=== PATIENT | male | born 1950 | race Caucasian/White ===

== ENCOUNTER 2018-09-09 00:41 | Outpatient (CLI) | payer SELFPAY ==
--- NOTE | 2018-09-09 09:24 | DI.RAD_ITS ---
SYMPTOM/DIAGNOSIS: DYSPHAGIA R13.10, CHRONIC COUGH R05 BARIUM SWALLOW: Routine examination was performed. No priors. PA and lateral view of the chest were obtained. Heart size and pulmonary vasculature are within normal limits. The lungs are clear and well expanded. No effusions or pneumothoraces are identified. IMPRESSION: No evidence of an acute pulmonary process. Fluoroscopy Time: 1:03 Barium swallow was performed according to protocol. There is a normal swallowing mechanism. No gastroesophageal reflux was identified during the examination. No aspiration occurred during the examination. No intrinsic or extrinsic masses, ulcers of stenoses are seen. Note is made of a small hiatal hernia. IMPRESSION: 1. No evidence of aspiration or gastroesophageal reflux during the examination. 2. Small hiatal hernia.
== END 2018-09-09 01:01 ==
PROVIDERS: PCP Internal Medicine; Visit Provider Internal Medicine
DX: R13.10 Dysphagia, unspecified (principal); R05 Cough; K44.9 Diaphragmatic hernia without obstruction or gangrene
CPT/HCPCS: 74220; J3490

== ENCOUNTER 2018-11-07 06:39 | Day surgery (SDC) | payer MEDICARE, SELFPAY ==
[2018-11-07 07:06] VITALS: BP 150/97; PULSE 72; RESP 18; TEMP 35.9; O2SAT 98
[2018-11-07] MEDS: Lactated Ringers 1,000 ML 30 ML IV (07:49)
--- NOTE | 2018-11-07 07:54 | W.COLOREPORT ---
Date of service: 11/07/18 Time of Service: 08: Colonoscopy Report Date of procedure: 11/07/18 Pre-op diagnosis general: Colon Cancer screening Post-op diagnosis procedure note: other (Ascending Colon Polyps, large sigmoid polyp, copeland-diverticulosis) Procedure: Colonoscopy with polypectomy with cold forceps and hot snare Surgeon: Lilly Baeza Anesthesia proc note operative: MAC (Melissa Bojorquez, CASE SPECIALIST/ ASA 2) Estimated blood loss (mL): 3 Pathology: other (Ascending Colon polyps x2, sigmoid polyp x 1) Complications: None Disposition: same day Indications: Mr. Car is a 68 year old male who had Colonoscopy in 2007 which was normal. He was seen in the office for another colonoscopy. Risks, benefits and complications have been reviewed. Complications include but are not limited to bleeding, pain, perforation, missed small lesion/polyp, sore throat, aspiration and adverse reaction to the medications. Questions were entertained and answered to their satisfaction and they wished to proceed. No guarantees were given or implied. Prep: Miralax/Dulcolax Procedure Start Time: : Procedure End Time: : Findings: 1. Ascending Colon polyp x2 2. Sigmoid colon polyp- large pedunculated polyp suspicious 3. Severe Copeland-diverticulosis Procedure Description: After informed consent was obtained the patient was taken to the procedure room and placed in a left decubitous position. Monitors were applied and a time out was done. The patients name, date of , procedure, allergies to medications and metal in their body was reviewed. The patient was then sedated. Once sedated and comfortable a rectal exam was done. External exam was normal. Internal exam revealed a normal sphincter tone and no palpable masses. The prostate was smooth. The scope was then introduced and retro-flexed. No internal hemorrhoids were identified. The scope was then advanced to the cecum without difficulty. The TI and appendiceal orifice were identified. The prep was good. The scope was then slowly retracted over 24 minutes back into the rectum. Polyps were removed in the ascending colon with cold forceps. One large pedunculated polyp was removed with a hot snare at 20 cm. The area was tattooed. There was also copeland-diverticulosis noted throughout the colon. The diverticulosis was worse on the left side then the right. The scope was removed and the patient was woken up and taken back to Same day surgery in stable condition. The patient tolerated the procedure well and there were no immediate complications. Follow up: Follow up depending on final pathology unless they develop changes in bowel habits or other new gastrointestinal complaints.
--- NOTE | 2018-11-07 07:58 | COLE_ITS ---
Date of service: 11/07/18 Time of Service: 08: Colonoscopy Report Date of procedure: 11/07/18 Pre-op diagnosis general: Colon Cancer screening Post-op diagnosis procedure note: other (Ascending Colon Polyps, large sigmoid polyp, copeland-diverticulosis) Procedure: Colonoscopy with polypectomy with cold forceps and hot snare Surgeon: Lilly Baeza Anesthesia proc note operative: MAC (Melissa Bojorquez, CAR CHECKER/ ASA 2) Estimated blood loss (mL): 3 Pathology: other (Ascending Colon polyps x2, sigmoid polyp x 1) Complications: None Disposition: same day Indications: Mr. Car is a 68 year old male who had Colonoscopy in 2007 which was normal. He was seen in the office for another colonoscopy. Risks, benefits and complications have been reviewed. Complications include but are not limited to bleeding, pain, perforation, missed small lesion/polyp, sore throat, aspiration and adverse reaction to the medications. Questions were entertained and answered to their satisfaction and they wished to proceed. No guarantees were given or implied. Prep: Miralax/Dulcolax Procedure Start Time: : Procedure End Time: : Findings: 1. Ascending Colon polyp x2 2. Sigmoid colon polyp- large pedunculated polyp suspicious 3. Severe Copeland-diverticulosis Procedure Description: After informed consent was obtained the patient was taken to the procedure room and placed in a left decubitous position. Monitors were applied and a time out was done. The patients name, date of , procedure, allergies to medications and metal in their body was reviewed. The patient was then sedated. Once sedated and comfortable a rectal exam was done. External exam was normal. Internal exam revealed a normal sphincter tone and no palpable masses. The prostate was smooth. The scope was then introduced and retro-flexed. No internal hemorrhoids were identified. The scope was then advanced to the cecum without difficulty. The TI and appendiceal orifice were identified. The prep was good. The scope was then slowly retracted over 24 minutes back into the rectum. Polyps were removed in the ascending colon with cold forceps. One large pedunculated polyp was removed with a hot snare at 20 cm. The area was tattooed. There was also copeland- diverticulosis noted throughout the colon. The diverticulosis was worse on the left side then the right. The scope was removed and the patient was woken up and taken back to Same day surgery in stable condition. The patient tolerated the procedure well and there were no immediate complications. Follow up: Follow up depending on final pathology unless they develop changes in bowel habits or other new gastrointestinal complaints.
--- NOTE | 2018-11-07 07:59 | W.PM.DSUDISC ---
Discharge Plan Disposition Patient Disposition: HOME Condition: Good Discharge Details Reason For Visit: Colonoscopy Attending Provider: Lilly Baeza Primary Care Provider: Faraz Kelley Home Meds and New Rx's Prescriptions: Continued ibuprofen 200 MG capsule 200 mg PO DAILY RF: 0 lovastatin 40 MG tablet 40 mg PO DAILY RF: 0 paroxetine HCl 20 MG tablet 1 tab PO DAILY RF: 0 Discontinued bisacodyl [Dulcolax (bisacodyl)] 5 mg tablet,delayed release (DR/EC) 5 mg PO ONCE Qty: 4 RF: 0 polyethylene glycol 3350 17 gram/dose powder 255 g PO ONCE Qty: 255 RF: 0 Discharge Instructions Instructions: Colonoscopy (DC), Colorectal Polyps (DC), Diverticulosis (DC) Additional Instructions: Findings: several colon polyps. One was large and my have cancer Diverticulosis Follow up:depends on final pathology Please call if you develop: fevers >101.5 Nausea or Vomiting Abdominal pain that is not transient DAY SURGERY UNIT POST COLONOSCOPY INSTRUCTIONS 1. Because there will be medication in your system for the next 24 hours, you may feel a little sleepy. Your coordination will be affected. Therefore: a. Do not drive or operate dangerous equipment for 24 hours. b. Do not drink alcohol beverages for 24 hours (not even beer). c. Plan to go home and rest for the day. 2. Generally there are no restrictions on your activity after a day or so has gone by, but you may feel a bit fatigued for a few days. 3 After you arrive home you may have a light meal and return to a normal diet as you can tolerate it without feeling sick to your stomach. 4. After surgery, you may feel pain or discomfort. This should be only transient, but if it persists please contact your doctor. 5. If there are any questions regarding the findings of your procedure, please feel free to contact your doctor. 6. If you are unable to contact your doctor with a problem, contact the hospital at [phone]. 7. Continue all your regular medications unless directed otherwise. I understand the above instructions and have no questions. Signature of Patient or Responsible Adult Escort Date/Time Name of Responsible Adult Escort Signature of Nurse Date/Time Activity:: Activity as Tolerated Diet:: As Tolerated Discharge Orders Discharge Orders: Discharge Order (Routine); Ordered 11/07/18 Ordered By: Lilly Baeza DS: Diagnosis Discharge Diagnosis (1) Colorectal polyps: Status: Acute (2) S/P colonoscopy: Status: Acute
--- NOTE | 2018-11-07 08:36 | BOWEL_PTH ---
PATIENT: Gibson Car LOC: [facility] U#:[id number] AGE/SX: 68/M ROOM: RE11/07/[address]: Lilly Baeza MD : [id number] BED: DIS: 11/07/2018 SPEC #: [id number] RECD: 11/07/18 12:37 STATUS: MARCOS RERay #: [id number] MICHELLE: 11/07/18 08:[address]: Lilly Baeza DEPT: Surgical Specimen RECD BY: Bren Villegas ENTERED: 11/07/18 12:38 SP TYPE: Bowel OTHR DR: Faraz Kelley Tissues: 1 - BIOPSY BOWEL 2 - BIOPSY BOWEL Procedures: GROSS AND MICRO LEVEL 4 Comments: [id number]
[2018-11-07] MEDS: Endoscopic Tattoo 5 ML SYR IJ (08:50)
[2018-11-07 10:07] VITALS: BP 133/89; PULSE 58; RESP 18; TEMP 35.8; O2SAT 100
== END 2018-11-07 10:00 | disposition home or self-care (01) ==
PROVIDERS: PCP Internal Medicine; Visit Provider Surgery
PROC: 0DJD8ZZ Inspection of Lower Intestinal Tract, Via Natural or Artificial Opening Endoscopic (ICD-10-PCS; CPT 45378; principal; 2018-11-07 08:15)
DX: Z12.11 Encounter for screening for malignant neoplasm of colon (principal); D12.2 Benign neoplasm of ascending colon; D12.5 Benign neoplasm of sigmoid colon
CPT/HCPCS: 45385; 45380; 88305

== ENCOUNTER 2018-11-13 12:20 | Emergency (ER) | payer MEDICARE, SELFPAY ==
[2018-11-13 12:26] VITALS: BP 149/91; PULSE 73; RESP 16; TEMP 36.5; O2SAT 98
--- NOTE | 2018-11-13 12:34 | DI.RAD_ITS ---
SYMPTOMS/DIAGNOSIS: SAW INJURY OF DISTAL 2-4 FINGERS, ? FX LEFT HAND: Three views. There appears to be cortical disruption of the ulnar aspect of the terminal tuft of the left ringer finger. Adjacent to the terminal tuft of the left middle finger, there are a few tiny densities present medially. These may represent foreign bodies vs small avulsed fracture fragments. Adjacent to the medial aspect of the terminal tuft of the left index finger there are also soft tissue densities present. These may represent small avulsed fracture fragments vs loose bodies. Soft tissue defects are seen in the medial aspects of the tips of the left index, middle and ring fingers consistent with soft tissue lacerations. No other findings to suggest a fracture or dislocation is seen. Mild osteoarthritis is seen of the left hand. IMPRESSION: 1. Lacerations involving the tips of the index, middle and ring fingers on the left hand. Tiny densities seen in the soft tissues. These may represent loose bodies or tiny fragment fragments. 2. Cortical disruption of the medial aspect of the terminal tuft of the left ring finger suspicious for a fracture.
--- NOTE | 2018-11-13 12:35 | W.ED.GENAD ---
Discharge Plan Disposition Patient Disposition: HOME Condition: Stable Discharge Details Chief Complaint: Laceration Clinical Impression: Laceration of hand, left Primary Care Provider: Faraz Kelley ED Provider: Adarsh Mckoy Home Meds and New Rx's Prescriptions: No Action ibuprofen 200 MG capsule 200 mg PO DAILY RF: 0 lovastatin 40 MG tablet 40 mg PO DAILY RF: 0 paroxetine HCl 20 MG tablet 1 tab PO DAILY RF: 0 Discharge Instructions Instructions: Laceration (ED) Additional Instructions: return in 10 days to have the sutures removed if redness spreads down the fingers or you have yellow/white discharge from the wound return to the emergency department Medical Decision Making PT was using a saw earlier and his left hand slipped and caused lacerations to the 2-4 distal digits. Did not fall or have loc. He has intact sensation and full rom of the fingers. Will xray to eval for underlying fx no fx on my read of the xray. I closed his wounds and advised he return to have the sutures removed in 10 days and return if evidence of infection\ per Dr. casanova has small cortical disruption of the ring finger distally and possible of the distal mid finger, none that are displaced. Do not feel orthopedics referral for these indicated, advised f/u with pcp Differential Diagnosis laceration, fx Imaging Data Radiologic Study: Attestation: I personally reviewed and interpreted this imaging study as follows: Imaging: X-Ray Radiologist's impression: IMPRESSION: 1. Lacerations involving the tips of the index, middle and ring fingers on the left hand. Tiny densities seen in the soft tissues. These may represent loose bodies or tiny fragment fragments. 2. Cortical disruption of the medial aspect of the terminal tuft of the left ring finger suspicious for a fracture. HPI General Mode of arrival: ambulatory. Date/Time Provider Initiated Documentation: 11/13/18 12:22. Limitations to Documentation: no limitations. Information obtained by: patient. History of Present Illness 68 year old M presents to the emergency department with the chief complaint of left hand injury, described as moderate, with intensity rated at 5. Quality is described as aching, and is localized to the left and upper extremity. Patient reports no radiation. and it has been constant. No relieving factors improve symptom(s), No exacerbating factors reported . Patient notes no other symptoms.. Patient did receive the following treatments prior to arrival, none Related Data Home Medications Medication Instructions Recorded Confirmed ibuprofen 200 mg PO DAILY 10/01/17 01/17/19 lovastatin 40 mg PO DAILY 07/28/17 11/13/18 paroxetine HCl 1 tab PO DAILY 07/28/17 11/13/18 Allergies Allergy/AdvReac Type Severity Reaction Status Date / Time No Known Allergies Allergy Verified 11/13/18 12:30 General Stated Complaint: Laceration SHADI: 4 Review of Systems Review of Systems All systems reviewed & are unremarkable except as noted in HPI and below Constitutional Denies chills, Denies fever(s) and Denies weakness ENT Denies change in voice Cardiovascular Denies chest pain and Denies dyspnea Respiratory Denies dyspnea Gastrointestinal Denies abdominal pain, Denies nausea and Denies vomiting Musculoskeletal Denies joint swelling Integumentary/Breasts Denies rash Neurologic Denies weakness [facility] Medical History Colorectal polyps (Acute ~11/07/18) Diverticulosis (Chronic) Depression (Chronic) BPH loc w/o ur obs/LUTS (Chronic) Chronic cough (Chronic) Dysphagia (Chronic) Dysphonia (Chronic) Ankylosing spondylitis (Chronic) Fibromyalgia (Chronic) Hyperlipidemia (Chronic) Iritis (Chronic) Osteoarthritis of knees, bilateral (Chronic) Surgical History S/P colonoscopy (Acute ~11/07/18) H/O colonoscopy (Chronic 12/31/07) Social History Smoking/Tobacco Use Status: Former Tobacco Use Exam Const General: no acute distress Orientation: alert [facility] Head: normal to inspection Ears: external ears normal General nose exam: external nose normal Mouth: moist mucous membranes Eyes General: appearance normal, both eyes and all related structures Neck Neck: normal visual inspection Resp Effort & Inspection: normal respiratory effort and able to speak in complete sentences Cardio Rate: regular rate Skin General skin exam: no rashes or lesions noted Neuro General: alert and oriented x3 Extrem General: normal capillary refill Psych Mental Status: mental status grossly normal Course Vital Signs Temperature 36.5 C 11/13/18 12:26 Pulse 73 11/13/18 12:26 Respiratory Rate 16 11/13/18 12:26 Blood Pressure 149/91 H 11/13/18 12:26 Pulse Oximetry 98 11/13/18 12:26 Temperature 36.5 C 11/13/18 12:26 Temperature Source Skin 11/13/18 12:26 Pulse 73 11/13/18 12:26 Respiratory Rate 16 11/13/18 12:26 Respiratory Effort 11/13/18 12:26 Blood Pressure 149/91 H 11/13/18 12:26 Blood Pressure Position Sitting 11/13/18 12:26 Pulse Oximetry 98 11/13/18 12:26 Oxygen Delivery Method Room Air 11/13/18 12:26 Oxygen Flow Rate 0 11/13/18 12:26 Pain Level 3 11/13/18 12:26 Procedures Laceration Laceration 1: Site: upper extremity Side (If applicable): left Size (cm): 6 Description: linear Depth: simple, single layer Local Anesthetic: Lidocaine 1% Amount of anesthesia used (mL): 8 Pre-repair: wound explored and irrigated extensively Skin layer closed with: vicryl Size (cm): 5-0 Number of sutures: 8 Technique: simple, interrupted
[2018-11-13 13:50] VITALS: BP 149/91; PULSE 73; RESP 16; TEMP 36.5; O2SAT 98
== END 2018-11-13 13:52 | disposition home or self-care (01) ==
PROVIDERS: Emergency Provider Emergency Medicine; PCP Internal Medicine
DX: S61.211A Laceration without foreign body of left index finger without damage to nail, initial encounter (principal); S61.213A Laceration without foreign body of left middle finger without damage to nail, initial encounter; S61.215A Laceration without foreign body of left ring finger without damage to nail, initial encounter; W27.0XXA Contact with workbench tool, initial encounter
CPT/HCPCS: 12002; 90471; 99283; 73130; 99282

== ENCOUNTER 2018-11-23 14:33 | Emergency (ER) | payer MEDICARE, SELFPAY ==
[2018-11-23 14:40] VITALS: BP 170/100; PULSE 63; RESP 16; TEMP 36.6; O2SAT 96
--- NOTE | 2018-11-23 15:04 | ED.GENADUL_ITS ---
Discharge Plan Disposition Patient Disposition: HOME Condition: Fair Discharge Details Chief Complaint: SutureRem Clinical Impression: Encounter for removal of sutures Primary Care Provider: Faraz Kelley ED Provider: Catina Agudelo Home Meds and New Rx's Prescriptions: Continued amoxicillin-pot clavulanate [Augmentin] 875-125 mg tablet 1 tab PO BID Qty: 10 RF: 0 ibuprofen 200 MG capsule 200 mg PO DAILY RF: 0 lovastatin 40 MG tablet 40 mg PO DAILY RF: 0 paroxetine HCl 20 MG tablet 1 tab PO DAILY RF: 0 Discharge Instructions Instructions: Finger Laceration (ED) Additional Instructions: Keep wounds clean and dry. When you are at home and are able please allow these open to air. However, when I work her out please cover with Band-Aid to help prevent infection include the areas clean. I would like you to follow-up with your primary for wound check at the end of the week. Please keep Steri-Strips in place until it falls off on its own. If you develop increased pain, fever/chills, discharge, redness or other new/worsening symptoms please seek care urgently once again peer Referrals: Faraz Kelley MD [Primary Care Provider] - Discharge Data Discharge Date/Time-TO BE ENTERED AT DEPARTURE: 11/23/18 15:44 Medical Decision Making Patient presents today with c/c of suture removal. Sutures were placed in the left distal 2,3,4 digits 10 days ago after patient suffered lacerations from table saw. Wounds were closed with simple interupted stitches and covered with adhesive. #8 sutures were identified. Difficult to remove with adhesive covering. Attempted to leave adhesive in place but much of this came off when trying to remove stitches. This did lead to to reopening of the areas, particularly over the index finger that appears to have a flap laceration. Areas under were macerated. No signs of infection at this time. Cleansed the fingers. Nursing staff used steristrips to hold flap in place and reinforce the wounds. I am concerned that he continues to be at risk for infection. We discussed this in depth, he was given strict return precautions and I advised that he have a wound check with his PCP at the end of the week. Wounds were covered. I advised that he keep them covered when needed to prevent infection but did encouge keeping these to air while at home as the skin did appear macerated. All of his quesitons and concerns were addressed, he is in agreement with this plan. HPI General Mode of arrival: ambulatory . Date/Time Provider Initiated Documentation: 11/23/18 14:39 . Limitations to Documentation: no limitations . Information obtained by: patient and family . History of Present Illness 68 year old M presents to the emergency department with the chief complaint of suture removal, described as mild, and is localized to the left and upper extremity. Patient reports no radiation. Patient started experiencing this day(s) (10) Movement worsens symptoms . Patient notes denies fever/chills and rash. Related Data Home Medications Medication Instructions Recorded Confirmed ibuprofen 200 mg PO DAILY 07/28/17 11/13/18 lovastatin 40 mg PO DAILY 07/28/17 11/13/18 paroxetine HCl 1 tab PO DAILY 07/28/17 11/13/18 amoxicillin-pot clavulanate 1 tab PO BID #10 tab 11/13/18 [Augmentin] Previous Rx's Medication Instructions Recorded amoxicillin-pot clavulanate 1 tab PO BID #10 tab 11/13/18 [Augmentin] Allergies Allergy/AdvReac Type Severity Reaction Status Date / Time No Known Allergies Allergy Verified 11/13/18 12:30 General SHADI: 4 Review of Systems Constitutional Reports as per HPI, Denies chills, Denies fever(s) and Denies weakness Musculoskeletal Reports as per HPI and Denies tingling Integumentary/Breasts Reports as per HPI Neurologic Denies tingling and Denies weakness PFSH Medical History Colorectal polyps (Acute ~11/07/18) Diverticulosis (Chronic) Depression (Chronic) BPH loc w/o ur obs/LUTS (Chronic) Chronic cough (Chronic) Dysphagia (Chronic) Dysphonia (Chronic) Ankylosing spondylitis (Chronic) Fibromyalgia (Chronic) Hyperlipidemia (Chronic) Iritis (Chronic) Osteoarthritis of knees, bilateral (Chronic) Surgical History S/P colonoscopy (Acute ~11/07/18) H/O colonoscopy (Chronic 12/31/07) Social History Smoking/Tobacco Use Status: Former Tobacco Use Exam Const General: cooperative, healthy appearing, comfortable, no acute distress and well developed Nutritional Appearance: average body habitus and well nourished Orientation: alert and awake Resp Effort & Inspection: normal respiratory effort, able to speak in complete sentences and no respiratory distress Cardio Rate: regular rate Rhythm: regular rhythm Skin General skin exam: no ecchymosis, no erythema and no fluctuance Trauma: laceration (2,3,4 digits left hand, covered with adhesive and suture) Neuro General: alert and awake Cognition: normal cognition Speech: speech normal Gait: normal gait Motor: muscle tone normal throughout Extrem General: abnormal to inspection (lacerations as above) Psych Appearance: grossly normal and well kempt Mental Status: mental status grossly normal Speech and Movement: speech and movement normal
== END 2018-11-23 15:44 | disposition home or self-care (01) ==
PROVIDERS: Emergency Provider Physician Assistant; PCP Internal Medicine
DX: S61.211D Laceration without foreign body of left index finger without damage to nail, subsequent encounter (principal); S61.213D Laceration without foreign body of left middle finger without damage to nail, subsequent encounter; S61.215D Laceration without foreign body of left ring finger without damage to nail, subsequent encounter; W27.0XXD Contact with workbench tool, subsequent encounter; Z48.02 Encounter for removal of sutures

== ENCOUNTER 2018-11-27 17:53 | Outpatient (REF) | payer MEDICARE, SELFPAY | END 2018-11-27 18:13 | LOC: NCHCN 17:53 | PROVIDERS: PCP Internal Medicine; Visit Provider Internal Medicine | DX: L08.9 Local infection of the skin and subcutaneous tissue, unspecified (principal); S61.203A Unspecified open wound of left middle finger without damage to nail, initial encounter | CPT/HCPCS: 87077; 87070; 87186; 87205 ==

== ENCOUNTER → 2020-12-23 10:51 | Outpatient (BNVA) | payer MEDICARE, SELFPAY | PROVIDERS: PCP Internal Medicine; Referring Provider Internal Medicine; Visit Provider Physical Therapy Assistant | DX: R13.10 Dysphagia, unspecified (principal); Z86.010 Personal history of colon polyps | CPT/HCPCS: 99214 ==

== ENCOUNTER 2021-01-07 15:23 | Observation (INO) | payer MEDICARE, SELFPAY ==
[2021-01-07] VITALS (29 sets, daily range): BP systolic 133–191; BP diastolic 75–101; PULSE 57–72; RESP 9–19; TEMP 35.8–37.1; O2SAT 96–99
--- NOTE | 2021-01-07 15:25 | ED.GENADUL_ITS ---
Discharge Plan Disposition Patient Disposition: [facility] INPATIENT Condition: Stable Discharge Details Clinical Impression: TIA (transient ischemic attack) Admit Date/Time: 01/07/21 17:37 Admit Provider: Marcus Jackson Attending Provider: Marcus Jackson Primary Care Provider: Faraz Kelley ED Provider: Montse Lainez Medical Decision Making 70-year-old male with a history of hypertension, hyperlipidemia, ankylosing spondylitis, fibromyalgia presents to the ED with concern for TIA. He endorses a 15-minute episode of blurry vision and a 30-minute episode of difficulty remembering family names that are both now resolved. He admits now to only mild headache. Blood pressure initially hypertensive at 191/101, improved to the 150s/90s. No focal deficits on exam. He appears comfortable and nontoxic. EKG notes a rate of 68, sinus, no STEMI, nondiagnostic Suspect most likely TIA, also consider acute CVA, electrolyte abnormality, arrhythmia, dehydration, etc. Will place an IV, bolus IV fluids, screening labs, CTA head and neck, chest x-ray. Labs reviewed. Hemoglobin elevated at 17.7. May be dehydration. Patient is a non-smoker. Troponin negative. CTA head and neck negative for acute findings. Chest x-ray negative. Discussed with patient that I recommend admission for observation overnight for suspected TIA for continued monitoring. We may not have MRI or echo capability over the weekend but would recommend patient be continued to be evaluated on telemetry. We will give a dose of aspirin. Patient did admit to neck pain which she states is chronic which she states may be due to his arthritis, fibromyalgia or ankylosing spondylitis. He appears nontoxic and do not suspect meningitis. Will give a dose of IV Tylenol and p.o. Valium. Medical Records Medical records reviewed: Yes I reviewed the patient's medical records. Imaging Data Radiologic Study: Radiologist's impression: CT Angiography Head With Contrast Exam date and time: 01/07/2021 4:18 PM Age: 70 years old Clinical indication: Cognitive deficit and weakness; Attention and concentration deficit; Patient HX: Patient had episode of confusion, right eye blurriness through episode. ; Additional info: 5 minute delay of brain per [facility] protocol. As well as head wo. TECHNIQUE: Imaging protocol: Computed tomography angiography of the head with intravenous contrast. 3D rendering (Not supervised by radiologist): MIP and/or 3D reconstructed images were created by the technologist. Radiation optimization: All CT scans at this facility use at least one of these dose optimization techniques: automated exposure control; mA and/or kV adjustment per patient size (includes targeted exams where dose is matched to clinical indication); or iterative reconstruction. Contrast material: OMNIPAQUE 350; Contrast volume: 85 ml; Contrast route: INTRAVENOUS (IV); COMPARISON: No relevant prior studies available. FINDINGS: ANTERIOR CIRCULATION: Right internal carotid artery: Intracranial atherosclerosis at the right carotid siphon. No significant stenosis or occlusion. Right middle cerebral artery: No flow-limiting stenosis or occlusion. Right anterior cerebral artery: No flow-limiting stenosis or occlusion. Left internal carotid artery: Intracranial atherosclerosis at the left carotid siphon. No significant stenosis or occlusion. Left middle cerebral artery: No flow-limiting stenosis or occlusion. Left anterior cerebral artery: No flow-limiting stenosis or occlusion. 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 No occlusion. Left vertebral artery: Left dominant vertebral artery. No flow-limiting stenosis or occlusion. Basilar artery: No flow-limiting stenosis or occlusion. Right posterior cerebral artery: No flow-limiting stenosis or occlusion. Left posterior cerebral artery: No flow-limiting stenosis or occlusion. Brain: No acute abnormality. Cerebral ventricles: No ventriculomegaly. Bones/joints: No acute fracture. Soft tissues: Unremarkable. IMPRESSION: No occlusion or flow-limiting stenosis of the major visualized intracranial vasculature. Mild intracranial atherosclerosis. CT Head Without Contrast Exam date and time: 01/07/2021 4:18 PM Age: 70 years old Clinical indication: Cognitive deficit and weakness; Attention and concentration deficit; Patient HX: Patient had episode of confusion, right eye blurriness through episode. ; Additional info: 5 minute delay of brain per [facility] protocol. As well as head wo. TECHNIQUE: Imaging protocol: Computed tomography of the head without contrast. Other technique: STROKE PROTOCOL was implemented. COMPARISON: No relevant prior studies available. FINDINGS: Brain: No acute large territorial infarction or intracranial hemorrhage. Mild parenchymal volume loss and nonspecific white matter hypodensity, likely chronic microangiopathy. No mass effect or midline shift. Cerebral ventricles: No hydrocephalus. Bones/joints: No displaced calvarial fracture. Paranasal sinuses: Visualized sinuses are unremarkable. No fluid levels. Mastoid air cells: Visualized mastoid air cells are well aerated. Soft tissues: Unremarkable. IMPRESSION: No acute intracranial abnormality. CT Angiography Neck With Contrast Exam date and time: 01/07/2021 4:18 PM Age: 70 years old Clinical indication: Cognitive deficit and weakness; Attention and concentration deficit; Patient HX: Patient had episode of confusion, right eye blurriness through episode. ; Additional info: 5 minute delay of brain per [facility] protocol. As well as head wo. TECHNIQUE: Imaging protocol: Computed tomography angiography of the neck with intravenous contrast. 3D rendering (Not supervised by radiologist): MIP and/or 3D reconstructed images were created by the technologist. Radiation optimization: All CT scans at this facility use at least one of these dose optimization techniques: automated exposure control; mA and/or kV adjustment per patient size (includes targeted exams where dose is matched to clinical indication); or iterative reconstruction. Contrast material: OMNIPAQUE 350; Contrast route: INTRAVENOUS (IV); COMPARISON: No relevant prior studies available. FINDINGS: Right common carotid artery: Atherosclerotic disease of the right common carotid artery. No significant stenosis or occlusion. Atherosclerotic disease of the right common carotid artery. No significant stenosis or occlusion. Right internal carotid artery: Atherosclerotic disease, without significant proximal right internal carotid artery stenosis by NASCET criteria. Right external carotid artery: No occlusion or stenosis of the origin. 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 No occlusion. Left common carotid artery: No stenosis. No dissection or occlusion. Left internal carotid artery: Atherosclerotic disease, without significant proximal left internal carotid artery stenosis by NASCET criteria. Left external carotid artery: No occlusion or stenosis of the origin. Left vertebral artery: Left dominant vertebral artery. No flow-limiting stenosis or occlusion. Bones/joints: Multilevel degenerative changes of the cervical spine, worse at C6-C7 with posterior disc osteophyte causing moderate to severe spinal stenosis. Mild anterolisthesis at C5-C6. Straightening of cervical lordosis. No acute osseous abnormality. Soft tissues: No significant soft tissue swelling. Lungs: Biapical pleuroparenchymal scarring. IMPRESSION: 1. No flow-limiting stenosis or occlusion. 2. Mild atherosclerosis. 3. Degenerative changes of the cervical spine. XR Chest Exam date and time: 01/07/2021 4:30 PM Age: 70 years old Clinical indication: Pain; Other: Possible TIA TECHNIQUE: Imaging protocol: XR of the chest Views: 2 views. COMPARISON: No relevant prior studies available. FINDINGS: Lungs: No focal consolidation. Pleural spaces: Unremarkable. No pleural effusion. No pneumothorax. Heart/Mediastinum: Cardiomediastinal countour within normal limits. Bones/joints: No acute displaced fracture. IMPRESSION: No acute cardiopulmonary process. Lab Data Lab results reviewed: Yes I reviewed the patient's lab results. Labs: Laboratory Tests Range/Units 01/07/21 01/07/21 01/07/21 15:35 15:35 15:35 WBC (4.4-10.8) 10^3/uL 6.78 RBC (4.36-5.78) 10^6/uL 5.13 Hgb (13.5-17.5) g/dL 17.7 H Hct (40.0-50.0) % 50.0 MCV (80-95) fL 97.5 H MCH (27.0-33.0) pg 34.5 H MCHC (32.0-36.0) % 35.4 RDW (11.8-14.1) % 12.1 Plt Count (130-400) 10^3/uL 240 MPV (8.0-11.0) fL 9.4 Immature Gran % 0.1 Neutrophils % 60.6 Lymphocytes % 27.6 Monocytes % 8.6 Eosinophils % 2.7 Basophils % 0.4 Nucleated RBC % % 0 Absolute Neutrophils (1.2-6.7) 10^3/uL 4.11 Absolute Lymphocytes (1.2-3.4) 10^3/uL 1.87 Absolute Monocytes (0.1-0.8) 10^3/uL 0.58 Absolute Eosinophils (0.0-0.7) 10^3/uL 0.18 Absolute Basophils (0.0-0.2) 10^3/uL 0.03 PT (9.3-11.0) sec 10.0 INR (0.9-1.1) 1.0 APTT (21.0-27.5) sec 25.2 Sodium (136-145) mmol/L 140 Potassium (3.5-5.1) mmol/L 3.7 Chloride (98-107) mmol/L 103 Carbon Dioxide (21.0-32.0) mmol/L 28.4 Anion Gap (3-11) mmol/L 8.6 BUN (7-18) mg/dL 14 Creatinine (0.70-1.30) mg/dL 1.2 Estimated GFR/1.73 m2 (mL/min/1.73m2) 59.86 Glucose (74-106) mg/dL 93 Calcium (8.5-10.1) mg/dL 8.9 Magnesium (1.8-2.4) mg/dL 2.2 Total Bilirubin (0.2-1.0) mg/dL 0.5 AST (15-37) U/L 20 ALT (16-63) U/L 47 Alkaline Phosphatase (46-116) U/L 91 Troponin I (<0.06) ng/mL < 0.05 Total Protein (6.4-8.2) g/dL 7.8 Albumin (3.4-5.0) g/dL 4.0 TSH (0.36-3.74) uIU/mL Range/Units 01/07/21 15:39 WBC (4.4-10.8) 10^3/uL RBC (4.36-5.78) 10^6/uL Hgb (13.5-17.5) g/dL Hct (40.0-50.0) % MCV (80-95) fL MCH (27.0-33.0) pg MCHC (32.0-36.0) % RDW (11.8-14.1) % Plt Count (130-400) 10^3/uL MPV (8.0-11.0) fL Immature Gran % Neutrophils % Lymphocytes % Monocytes % Eosinophils % Basophils % Nucleated RBC % % Absolute Neutrophils (1.2-6.7) 10^3/uL Absolute Lymphocytes (1.2-3.4) 10^3/uL Absolute Monocytes (0.1-0.8) 10^3/uL Absolute Eosinophils (0.0-0.7) 10^3/uL Absolute Basophils (0.0-0.2) 10^3/uL PT (9.3-11.0) sec INR (0.9-1.1) APTT (21.0-27.5) sec Sodium (136-145) mmol/L Potassium (3.5-5.1) mmol/L Chloride (98-107) mmol/L Carbon Dioxide (21.0-32.0) mmol/L Anion Gap (3-11) mmol/L BUN (7-18) mg/dL Creatinine (0.70-1.30) mg/dL Estimated GFR/1.73 m2 (mL/min/1.73m2) Glucose (74-106) mg/dL Calcium (8.5-10.1) mg/dL Magnesium (1.8-2.4) mg/dL Total Bilirubin (0.2-1.0) mg/dL AST (15-37) U/L ALT (16-63) U/L Alkaline Phosphatase (46-116) U/L Troponin I (<0.06) ng/mL Total Protein (6.4-8.2) g/dL Albumin (3.4-5.0) g/dL TSH (0.36-3.74) uIU/mL 3.27 ECG Data Attestation: I personally reviewed and interpreted this ECG (s) as follows: Interpretation: Rate of 58, sinus, no acute ST elevation or depression. CO 206. QRS 106. QTc 451. HPI General Mode of arrival: ambulatory . Date/Time Provider Initiated Documentation: 01/07/21 15:24 . Limitations to Documentation: no limitations . Information obtained by: patient . HPI Narrative: Patient is a 70-year-old male with a history of fibromyalgia, ankylosing spondylitis, hyperlipidemia and depression presents for blurry vision and speech changes today. Patient states a few hours prior to arrival he had blurry vision in both eyes, worse on the right side that occurred while he was reading. He states this lasted probably 15 minutes and then resolved. He also states that he had difficulty recalling names of some of his family members that occurred several hours later and last approximately 30 minutes and then resolved. Patient has a mild headache 1/10 on the top of his head but otherwise denies any other symptoms at this time. He denies dizziness, chest pain, shortness of breath, nausea, vomiting, diarrhea, abdominal pain or urinary symptoms. He denies any recent illness, recent new medications, recent travel or recent known sick contacts. Related Data Home Medications Medication Instructions Recorded Confirmed ibuprofen 200 mg PO DAILY 07/28/17 12/23/20 lovastatin 40 mg PO DAILY 07/28/17 01/07/21 albuterol sulfate 90 mcg/actuation 2 puff INHALATION Q6H PRN 09/02/20 01/07/21 aerosol inhaler loratadine 10 mg tablet 10 mg PO DAILY 09/02/20 01/07/21 paroxetine HCl 20 mg tablet 20 mg PO DAILY 09/02/20 01/07/21 bisacodyl 5 mg tablet,delayed 5 mg PO ONCE #4 tab 12/26/20 01/07/21 release bisacodyl 5 mg tablet,delayed 5 mg PO ONCE #4 tab 12/26/20 01/07/21 release polyethylene glycol 3350 17 238 g PO ONCE #238 g 12/26/20 01/07/21 gram/dose oral powder polyethylene glycol 3350 17 238 g PO ONCE #238 g 12/26/20 01/07/21 gram/dose oral powder Previous Rx's Medication Instructions Recorded bisacodyl 5 mg tablet,delayed 5 mg PO ONCE #4 tab 12/26/20 release bisacodyl 5 mg tablet,delayed 5 mg PO ONCE #4 tab 12/26/20 release polyethylene glycol 3350 17 238 g PO ONCE #238 g 12/26/20 gram/dose oral powder polyethylene glycol 3350 17 238 g PO ONCE #238 g 12/26/20 gram/dose oral powder Allergies Allergy/AdvReac Type Severity Reaction Status Date / Time No Known Allergies Allergy Verified 12/23/20 10:54 General SHADI: 4 Review of Systems All systems reviewed & are unremarkable except as noted in HPI and below Constitutional Constitutional: Reports as per HPI, Denies chills, Denies fever(s) and Reports headache(s) Eyes Eyes: Denies blurry vision and Reports loss of vision ENT Ears, Nose, Mouth, and Throat: Denies dizziness, Reports headache(s), Denies so re throat and Denies throat swelling Cardiovascular Cardiovascular: Denies chest pain and Denies dyspnea Respiratory Respiratory: Denies cough and Denies dyspnea Gastrointestinal Gastrointestinal: Denies abdominal pain, Denies diarrhea and Denies vomiting Genitourinary Genitourinary: Denies hematuria and Denies dysuria Musculoskeletal Musculoskeletal: Denies back pain and Denies numbness Integumentary/Breasts Skin/Breast: Denies lesions and Denies rash Neurologic Neurologic: Reports abnormal speech, Denies dizziness, Reports headache(s), Denies localized weakness, Reports loss of vision and Denies numbness Allergic/Immunologic Allergic/Immunologic: Denies throat swelling [facility] Medical History (Updated 03/13/21 @ 17:36 by Marcus Jackson) Adenomatous colon polyp Ankylosing spondylitis BPH loc w/o ur obs/LUTS Chronic cough Colorectal polyps (~11/07/18) Depression Diverticulosis Dysphagia Dysphonia Fibromyalgia Hyperlipidemia Iritis Osteoarthritis of knees, bilateral Postural tremor Tubulovillous adenoma (~2019) Surgical History H/O colonoscopy (12/31/07) screening colo with Dr Farr showed diverticulosis, sample showed inflammation only. S/P colonoscopy (~11/07/18) Social History Smoking/Tobacco Use Status: Former Tobacco Use Smoking risk assessment performed?: Yes Drug use: Never Do you feel safe at home: Yes Do you feel safe in your relationship?: Yes Exam Const General: cooperative, healthy appearing and no acute distress HENMT Head: normal to inspection Face and sinus: normal facial exam Eyes General: appearance normal, both eyes and all related structures Pupils: PERRL EOM: EOM intact bilaterally Neck Neck: normal visual inspection and No submandibular swelling Lymphatic: no lymphadenopathy noted Chest Chest: normal inspection of the chest and no tenderness Resp Effort & Inspection: normal respiratory effort and able to speak in complete sentences Auscultation: clear to auscultation bilaterally Cardio Rate: regular rate Rhythm: regular rhythm GI Inspection: normal to inspection Palpation: soft, not firm, not rigid and nontender Auscultation: normal bowel sounds Skin General skin exam: no rashes or lesions noted Neuro General: patient alert, patient awake, patient oriented x3, gait normal, moves all extremities and no meningeal signs Cranial Nerves: CN's II-XI intact bilaterally Cognition: normal cognition Speech: speech normal Motor: muscle tone normal throughout and strength 5/5 throughout Sensory Exam: no sensory deficits noted Extrem General: normal to inspection, full ROM, capillary refill normal, no calf tenderness bilaterally and no edema Psych Appearance: grossly normal Mental Status: mental status grossly normal Speech and Movement: speech and movement normal Affect: normal affect
--- NOTE | 2021-01-07 15:30 | RT.EKG_ITS ---
APPROVED REPORT Exam: Resting ECG Patient Location: E HR:68 bpm ECG Measurements Heart Rate 68 AXIS GA 206 P 38 QRSd 106 QRS -9 QT 422 T 32 QTc 451 Conclusion Sinus rhythm...normal P axis, V-rate 60- 99 I have reviewed and interpreted ECG and agree with software generated interpretation.
--- NOTE | 2021-01-07 16:00 | DI.CT_ITS ---
EXAM: CT BRAIN NECK CTA CLINICAL HISTORY: blurry vision, difficulty with speech, r/o cva. TECHNIQUE: Imaging Protocol: Axial CT angiography was performed with multi-slice acquisition and mu lti-planar and/or 3D reconstructions. CONTRAST MATERIAL: Intravenous: Omnipaque 350 Contrast volume:structured data in ml COMPARISON: No exams were available for comparison FINDINGS: CT angiography of the cervical cranial region was performed according to the usual protocol with intr avenous infusion of 100 cc of Omnipaque 350.. Initial noncontrast scanning of the head is unremarkable. Visualized lung apices are clear. Visualized portions of thoracic aorta and pulmonary arterial circul ation are unremarkable. There is no evidence of a cervical mass or adenopathy. The tracheal laryngeal structures appear intact. The common, internal, and external carotid arteries are within normal limits in the cervical region e xcept for slight atheromatous changes with no evidence of aneurysm, significant stenosis, or dissecti on. The vertebral arteries are unremarkable in appearance in the cervical region with no evidence of aneu rysm, stenosis, or dissection. Intracranial portions of the internal carotid arteries appear normal with no evidence of aneurysm, st enosis, or dissection. Intracranial vertebral arteries and basilar artery appear normal with no evidence of aneurysm, stenos is or dissection. No aneurysm identified in the region of the [id number]. The anterior, middle, and posterior cer ebral arteries and major branches appear intact with no evidence of aneurysm, stenosis, or dissection . No enhancing brain lesion identified. IMPRESSION: Negative CT angiography of the cervical cranial region. RADIATION DOSE DELIVERED: 1,926.19mGy.cmTotal DLP 1,926.19mGy.cm Total DLP DATA REPOSITORY: All CT scans at this facility are submitted to the National Radiology Data Registry (NRDR) Dose Index Registry (DIR) with the [employer] ([employer]). RADIATION OPTIMIZATION: All CT scans at this facility use at least one of these dose optimization te chniques: automated exposure control; mA and/or kV adjustment per patient size (includes targeted exa ms where dose is matched to clinical indication); or iterative reconstruction.
--- NOTE | 2021-01-07 16:00 | DI.RAD_ITS ---
EXAM: XR CHEST 2V PA LATERAL CLINICAL HISTORY: possible tia, r/o acute fx TECHNIQUE: 2D digital imaging was performed. COMPARISON: CR,RF RF barium swallow from 09/09/2018 FINDINGS: The heart is not enlarged. The lungs are clear and well expanded. No pleural effusion seen. Mediastin al contours appear intact. The bones appear intact as visualized. IMPRESSION: Normal chest. RADIATION DOSE DELIVERED: Total DLP
[2021-01-07] MEDS: Normal Saline Flush 10 ML SYR IVP ×2 (16:19→20:28)
[2021-01-07] MEDS: Omnipaque 350 MG/ML 100 ML BTL IJ (16:20)
[2021-01-07] MEDS: Normal Saline - Diluent 50 ML VIAL IV (16:21)
--- NOTE | 2021-01-07 16:51 | DI.VRAD_ITS ---
PROCEDURE INFORMATION: Exam: CT Angiography Head With Contrast Exam date and time: 01/07/2021 4:18 PM Age: 70 years old Clinical indication: Cognitive deficit and weakness; Attention and concentration deficit; Patient HX: Patient had episode of confusion, right eye blurriness through episode. ; Additional info: 5 minute delay of brain per [facility] protocol. As well as head wo. TECHNIQUE: Imaging protocol: Computed tomography angiography of the head with intravenous contrast. 3D rendering (Not supervised by radiologist): MIP and/or 3D reconstructed images were created by the technologist. Radiation optimization: All CT scans at this facility use at least one of these dose optimization techniques: automated exposure control; mA and/or kV adjustment per patient size (includes targeted exams where dose is matched to clinical indication); or iterative reconstruction. Contrast material: OMNIPAQUE 350; Contrast volume: 85 ml; Contrast route: INTRAVENOUS (IV); COMPARISON: No relevant prior studies available. FINDINGS: ANTERIOR CIRCULATION: Right internal carotid artery: Intracranial atherosclerosis at the right carotid siphon. No significant stenosis or occlusion. Right middle cerebral artery: No flow-limiting stenosis or occlusion. Right anterior cerebral artery: No flow-limiting stenosis or occlusion. Left internal carotid artery: Intracranial atherosclerosis at the left carotid siphon. No significant stenosis or occlusion. Left middle cerebral artery: No flow-limiting stenosis or occlusion. Left anterior cerebral artery: No flow-limiting stenosis or occlusion. 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 No occlusion. Left vertebral artery: Left dominant vertebral artery. No flow-limiting stenosis or occlusion. Basilar artery: No flow-limiting stenosis or occlusion. Right posterior cerebral artery: No flow-limiting stenosis or occlusion. Left posterior cerebral artery: No flow-limiting stenosis or occlusion. Brain: No acute abnormality. Cerebral ventricles: No ventriculomegaly. Bones/joints: No acute fracture. Soft tissues: Unremarkable. IMPRESSION: No occlusion or flow-limiting stenosis of the major visualized intracranial vasculature. Mild intracranial atherosclerosis. PROCEDURE INFORMATION: Exam: CT Head Without Contrast Exam date and time: 01/07/2021 4:18 PM Age: 70 years old Clinical indication: Cognitive deficit and weakness; Attention and concentration deficit; Patient HX: Patient had episode of confusion, right eye blurriness through episode. ; Additional info: 5 minute delay of brain per [facility] protocol. As well as head wo. TECHNIQUE: Imaging protocol: Computed tomography of the head without contrast. Other technique: STROKE PROTOCOL was implemented. COMPARISON: No relevant prior studies available. FINDINGS: Brain: No acute large territorial infarction or intracranial hemorrhage. Mild parenchymal volume loss and nonspecific white matter hypodensity, likely chronic microangiopathy. No mass effect or midline shift. Cerebral ventricles: No hydrocephalus. Bones/joints: No displaced calvarial fracture. Paranasal sinuses: Visualized sinuses are unremarkable. No fluid levels. Mastoid air cells: Visualized mastoid air cells are well aerated. Soft tissues: Unremarkable. IMPRESSION: No acute intracranial abnormality. ASSESSMENT: ASPECTS ([place] Stroke Program Early CT Score) is 10. PROCEDURE INFORMATION: Exam: CT Angiography Neck With Contrast Exam date and time: 01/07/2021 4:18 PM Age: 70 years old Clinical indication: Cognitive deficit and weakness; Attention and concentration deficit; Patient HX: Patient had episode of confusion, right eye blurriness through episode. ; Additional info: 5 minute delay of brain per [facility] protocol. As well as head wo. TECHNIQUE: Imaging protocol: Computed tomography angiography of the neck with intravenous contrast. 3D rendering (Not supervised by radiologist): MIP and/or 3D reconstructed images were created by the technologist. Radiation optimization: All CT scans at this facility use at least one of these dose optimization techniques: automated exposure control; mA and/or kV adjustment per patient size (includes targeted exams where dose is matched to clinical indication); or iterative reconstruction. Contrast material: OMNIPAQUE 350; Contrast route: INTRAVENOUS (IV); COMPARISON: No relevant prior studies available. FINDINGS: Right common carotid artery: Atherosclerotic disease of the right common carotid artery. No significant stenosis or occlusion. Atherosclerotic disease of the right common carotid artery. No significant stenosis or occlusion. Right internal carotid artery: Atherosclerotic disease, without significant proximal right internal carotid artery stenosis by NASCET criteria. Right external carotid artery: No occlusion or stenosis of the origin. 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 No occlusion. Left common carotid artery: No stenosis. No dissection or occlusion. Left internal carotid artery: Atherosclerotic disease, without significant proximal left internal carotid artery stenosis by NASCET criteria. Left external carotid artery: No occlusion or stenosis of the origin. Left vertebral artery: Left dominant vertebral artery. No flow-limiting stenosis or occlusion. Bones/joints: Multilevel degenerative changes of the cervical spine, worse at C6-C7 with posterior disc osteophyte causing moderate to severe spinal stenosis. Mild anterolisthesis at C5-C6. Straightening of cervical lordosis. No acute osseous abnormality. Soft tissues: No significant soft tissue swelling. Lungs: Biapical pleuroparenchymal scarring. IMPRESSION: 1. No flow-limiting stenosis or occlusion. 2. Mild atherosclerosis. 3. Degenerative changes of the cervical spine. REFERENCES: NASCET CRITERIA. The degree of internal carotid artery stenosis is based on NASCET criteria. Normal is no stenosis. Mild is less than 50% stenosis. Moderate is 50-69% stenosis. Severe is 70% to 99% stenosis. Total occlusion is no detectable patent lumen. Dictated and Authenticated by: Patti Jacob MD. Ordering:MYLA Willard MD
[2021-01-07 16:53] LABS: Abs Immature Grans 0.01 10^3/uL (0.0-0.06); Absolute Basophil Count 0.03 10^3/uL (0.0-0.2); Absolute Eosinophil Count 0.18 10^3/uL (0.0-0.7); Absolute Lymphocyte Count 1.87 10^3/uL (1.2-3.4); Absolute Monocyte Count 0.58 10^3/uL (0.1-0.8); Absolute Neutrophil Count 4.11 10^3/uL (1.2-6.7); Basophils % 0.4; Eosinophils % 2.7; HGB 17.7 g/dL (13.5-17.5); Immature Grans % 0.1; Lymphocytes % 27.6; MCH 34.5 pg (27.0-33.0); MCHC 35.4 % (32.0-36.0); MCV 97.5 fL (80-95); MPV 9.4 fL (8.0-11.0); Monocytes % 8.6; Neutrophils % 60.6; Nucleated RBC 0 %; Platelet Count 240 10^3/uL (130-400); RBC 5.13 10^6/uL (4.36-5.78); RDW 12.1 % (11.8-14.1); RDW-SD 43.7 fL; WBC 6.78 10^3/uL (4.4-10.8)
--- NOTE | 2021-01-07 16:57 | DI.VRAD_ITS ---
PROCEDURE INFORMATION: Exam: XR Chest Exam date and time: 01/07/2021 4:30 PM Age: 70 years old Clinical indication: Pain; Other: Possible TIA TECHNIQUE: Imaging protocol: XR of the chest Views: 2 views. COMPARISON: No relevant prior studies available. FINDINGS: Lungs: No focal consolidation. Pleural spaces: Unremarkable. No pleural effusion. No pneumothorax. Heart/Mediastinum: Cardiomediastinal countour within normal limits. Bones/joints: No acute displaced fracture. IMPRESSION: No acute cardiopulmonary process. Dictated and Authenticated by: Patti Jacob MD. Ordering:MYLA Willard MD
[2021-01-07 17:06] LABS: PTT Activated 25.2 sec (21.0-27.5)
[2021-01-07 17:09] LABS: ALT 47 U/L (16-63); AST 20 U/L (15-37); Alkaline Phosphatase 91 U/L (46-116); Anion Gap 8.6 mmol/L (3-11); BUN 14 mg/dL (7-18); Bilirubin, Total 0.5 mg/dL (0.2-1.0); CO2 28.4 mmol/L (21.0-32.0); CREATININE 1.2 mg/dL (0.70-1.30); Calcium 8.9 mg/dL (8.5-10.1); Chloride 103 mmol/L (98-107); Estimated GFR 59.86 (mL/min/1.73m2); Glucose 93 mg/dL (74-106); Magnesium 2.2 mg/dL (1.8-2.4); Potassium 3.7 mmol/L (3.5-5.1); Sodium 140 mmol/L (136-145); Total Protein 7.8 g/dL (6.4-8.2); Troponin I < 0.05 ng/mL (<0.06)
[2021-01-07] MEDS: Normal Saline 500 ML IV (17:25)
[2021-01-07] MEDS: ACETAMINOPHEN 1,000 MG/100 ML BTL 400 MG IVPB (17:27)
[2021-01-07] MEDS: Aspirin 325 MG TAB PO (17:30)
[2021-01-07] MEDS: diazePAM 5 MG TAB PO ×2 (17:30→20:47)
--- NOTE | 2021-01-07 17:31 | W.PM.HP.N ---
Date of service: 01/07/21 Time of Service: 17:31 Assessment and Plan Assessment and plan (1) TIA (transient ischemic attack): Start date: 01/07/21 Status: Acute Assessment and plan: This is a 70-year-old gentleman with transient neurological symptoms involving the right visual field and speech with inability to recall names of familiar faces on pictures. Both are completely resolved the patient has had no recurrent symptoms on loading dose of aspirin and continue baby aspirin. MRI follow-up can be done as an outpatient with patient having cardiac monitoring overnight with sinus bradycardia but no dysrhythmias. He does have significant risk factors for heart disease but CTA and CT of the head were negative. He was not previously on aspirin. Neurology follow-up will be appropriate. More aggressive treatment of cardiac risk factors would be appropriate and I did give the patient a large dose of statin which could be continued as an outpatient. He is already on a statin as an outpatient. He is a full code. (2) Ankylosing spondylitis of cervicothoracic region: Status: Chronic Assessment and plan: Increased pain recently with patient having fair mobility. He is having increased spasm and Valium was helpful with patient having been on cyclobenzaprine in the past which could be continued as an outpatient. Follow-up clinically with his PCP. (3) HTN (hypertension): Status: Chronic Assessment and plan: Patient was slightly hypertensive on admission which may indicate decreased blood flow to the brain with no evident stroke but symptoms of TIA. Consider treatment but for now permissive hypertension while evaluating in observation. Qualifiers: Hypertension type: essential hypertension Qualified Code(s): I10 - Essential (primary) hypertension History of Present Illness History of Present Illness Chief Complaint: Transient right visual field blurriness and name recall Narrative: This is a 70-year-old male patient who is a semiretired [employer] who reported to the ED with transient neurological symptoms which involved a 15-minute episode of right visual field blurriness which self resolved and then hours later inability to remember names of famous people and pictures of family members such as his niece though he recognized the faces. This lasted about 30 minutes and self resolved. He had a mild headache which was 1 out of 10 at the top of his head but no other neurological symptoms. At the time he reported to the ED it has been hours since the events. He denied any palpitations or chest discomfort. He has had no recent trauma. 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 He does have ankylosing spondylitis which is progressive with increased pain recently. He is very active without restrictions. The patient was not previously on aspirin was given a full dose aspirin in the ED which will be continued as a baby aspirin daily. He will be observed overnight because of his symptoms with cardiac monitoring and treatment of his ankylosing spondylitis and headache probably secondary to pain from this problem. Teleneurology in the ED had nothing more to offer but did recommend MRI for follow-up Review of Systems Narrative: 13 point review of systems otherwise unrevealing or stable. The patient is active and has controlled weight. He is not on antihypertensives and is on Paxil for treatment of mood disorder associated with his pain with ankylosing spondylitis. [facility] Medical History Adenomatous colon polyp Ankylosing spondylitis BPH loc w/o ur obs/LUTS Chronic cough Colorectal polyps (~11/07/18) Depression Diverticulosis Dysphagia Dysphonia Fibromyalgia Hyperlipidemia Iritis Osteoarthritis of knees, bilateral Postural tremor Tubulovillous adenoma (~2018) Surgical History H/O colonoscopy (12/31/07) screening colo with Dr Farr showed diverticulosis, sample showed inflammation only. S/P colonoscopy (~11/07/18) Social History Smoking/Tobacco Use Status: Former Tobacco Use Smoking risk assessment performed?: Yes Drug use: Never Do you feel safe at home: Yes Do you feel safe in your relationship?: Yes Meds Home Medications and Allergies Allergies Allergy/AdvReac Type Severity Reaction Status Date / Time No Known Allergies Allergy Verified 12/23/20 10:54 Home Medications Medication Instructions Recorded Confirmed Type ibuprofen 200 mg PO DAILY 07/28/17 12/23/20 History lovastatin 40 mg PO DAILY 07/28/17 01/07/21 History albuterol sulfate 90 mcg/actuation 2 puff INHALATION Q6H PRN 09/02/20 01/07/21 History aerosol inhaler loratadine 10 mg tablet 10 mg PO DAILY 09/02/20 01/07/21 History paroxetine HCl 20 mg tablet 20 mg PO DAILY 09/02/20 01/07/21 History bisacodyl 5 mg tablet,delayed 5 mg PO ONCE #4 tab 12/26/20 01/07/21 Rx release bisacodyl 5 mg tablet,delayed 5 mg PO ONCE #4 tab 12/26/20 01/07/21 Rx release polyethylene glycol 3350 17 238 g PO ONCE #238 g 12/26/20 01/07/21 Rx gram/dose oral powder polyethylene glycol 3350 17 238 g PO ONCE #238 g 12/26/20 01/07/21 Rx gram/dose oral powder Exam Narrative Exam Narrative: General: Patient appears younger than stated age, thin build and tall, in no acute distress. He is alert and oriented x3. HEENT: Normocephalic, eyes with pupils equal and reactive light symmetrically, extraocular movement tact and sclera anicteric. Oropharynx with moist mucosa and fair dentition. External ears and nose normal. Neck: Supple without JVD or auscultated carotid bruits. Back: Normal posture, no CVA tenderness. Lungs: Clear to auscultation and percussion. Normal inspiratory expiratory phase ratio with no expiratory wheeze. Heart: Bradycardic rate and regular rhythm with no murmurs gallops appreciated. Abdomen: Scaphoid contour, soft and nontender to palpation with no palpable hepatosplenomegaly. Genitalia/rectal: Exam deferred. Extremities: Without clubbing, cyanosis or edema with peripheral pulses intact. Osteoarthritic changes especially of the knees with genu varum. Skin: Normal color, warm and dry. Actinic changes over sun exposed areas. Neuro: Cranial nerves II through XII grossly intact, no focalizing motor deficits. Sensory grossly intact. No Babinski's. No tremor. Psych: Normal mood and affect, no abnormal thought processes. Remote and recent memory intact. Results Imaging Imaging Studies: Exam: CT Angiography Head With Contrast Exam date and time: 01/07/2021 4:18 PM Age: 70 years old Clinical indication: Cognitive deficit and weakness; Attention and concentration deficit; Patient HX: Patient had episode of confusion, right eye blurriness through episode. ; Additional info: 5 minute delay of brain per [facility] protocol. As well as head wo. TECHNIQUE: Imaging protocol: Computed tomography angiography of the head with intravenous contrast. 3D rendering (Not supervised by radiologist): MIP and/or 3D reconstructed images were created by the technologist. Radiation optimization: All CT scans at this facility use at least one of these dose optimization techniques: automated exposure control; mA and/or kV adjustment per patient size (includes targeted exams where dose is matched to clinical indication); or iterative reconstruction. Contrast material: OMNIPAQUE 350; Contrast volume: 85 ml; Contrast route: INTRAVENOUS (IV); COMPARISON: No relevant prior studies available. FINDINGS: ANTERIOR CIRCULATION: Right internal carotid artery: Intracranial atherosclerosis at the right carotid siphon. No significant stenosis or occlusion. Right middle cerebral artery: No flow-limiting stenosis or occlusion. Right anterior cerebral artery: No flow-limiting stenosis or occlusion. Left internal carotid artery: Intracranial atherosclerosis at the left carotid siphon. No significant stenosis or occlusion. Left middle cerebral artery: No flow-limiting stenosis or occlusion. Left anterior cerebral artery: No flow-limiting stenosis or occlusion. 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 No occlusion. Left vertebral artery: Left dominant vertebral artery. No flow-limiting stenosis or occlusion. Basilar artery: No flow-limiting stenosis or occlusion. Right posterior cerebral artery: No flow-limiting stenosis or occlusion. Left posterior cerebral artery: No flow-limiting stenosis or occlusion. Brain: No acute abnormality. Cerebral ventricles: No ventriculomegaly. Bones/joints: No acute fracture. Soft tissues: Unremarkable. IMPRESSION: No occlusion or flow-limiting stenosis of the major visualized intracranial vasculature. Mild intracranial atherosclerosis. PROCEDURE INFORMATION: Exam: CT Head Without Contrast Exam date and time: 01/07/2021 4:18 PM Age: 70 years old Clinical indication: Cognitive deficit and weakness; Attention and concentration deficit; Patient HX: Patient had episode of confusion, right eye blurriness through episode. ; Additional info: 5 minute delay of brain per [facility] protocol. As well as head wo. TECHNIQUE: Imaging protocol: Computed tomography of the head without contrast. Other technique: STROKE PROTOCOL was implemented. COMPARISON: No relevant prior studies available. FINDINGS: Brain: No acute large territorial infarction or intracranial hemorrhage. Mild parenchymal volume loss and nonspecific white matter hypodensity, likely chronic microangiopathy. No mass effect or midline shift. Cerebral ventricles: No hydrocephalus. Bones/joints: No displaced calvarial fracture. Paranasal sinuses: Visualized sinuses are unremarkable. No fluid levels. Mastoid air cells: Visualized mastoid air cells are well aerated. Soft tissues: Unremarkable. IMPRESSION: No acute intracranial abnormality. ASSESSMENT: ASPECTS ([place] Stroke Program Early CT Score) is 10. PROCEDURE INFORMATION: Exam: CT Angiography Neck With Contrast Exam date and time: 01/07/2021 4:18 PM Age: 70 years old Clinical indication: Cognitive deficit and weakness; Attention and concentration deficit; Patient HX: Patient had episode of confusion, right eye blurriness through episode. ; Additional info: 5 minute delay of brain per [facility] protocol. As well as head wo. TECHNIQUE: Imaging protocol: Computed tomography angiography of the neck with intravenous contrast. 3D rendering (Not supervised by radiologist): MIP and/or 3D reconstructed images were created by the technologist. Radiation optimization: All CT scans at this facility use at least one of these dose optimization techniques: automated exposure control; mA and/or kV adjustment per patient size (includes targeted exams where dose is matched to clinical indication); or iterative reconstruction. Contrast material: OMNIPAQUE 350; Contrast route: INTRAVENOUS (IV); COMPARISON: No relevant prior studies available. FINDINGS: Right common carotid artery: Atherosclerotic disease of the right common carotid artery. No significant stenosis or occlusion. Atherosclerotic disease of the right common carotid artery. No significant stenosis or occlusion. Right internal carotid artery: Atherosclerotic disease, without significant proximal right internal carotid artery stenosis by NASCET criteria. Right external carotid artery: No occlusion or stenosis of the origin. 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 No occlusion. Left common carotid artery: No stenosis. No dissection or occlusion. Left internal carotid artery: Atherosclerotic disease, without significant proximal left internal carotid artery stenosis by NASCET criteria. Left external carotid artery: No occlusion or stenosis of the origin. Left vertebral artery: Left dominant vertebral artery. No flow-limiting stenosis or occlusion. Bones/joints: Multilevel degenerative changes of the cervical spine, worse at C6-C7 with posterior disc osteophyte causing moderate to severe spinal stenosis. Mild anterolisthesis at C5-C6. Straightening of cervical lordosis. No acute osseous abnormality. Soft tissues: No significant soft tissue swelling. Lungs: Biapical pleuroparenchymal scarring. IMPRESSION: 1. No flow-limiting stenosis or occlusion. 2. Mild atherosclerosis. 3. Degenerative changes of the cervical spine. Labs Result diagrams: 01/08/21 07:00 01/08/21 07:00 Labs: Laboratory Results - last 24 hr 01/07/21 01/07/21 01/07/21 15:35 15:35 15:35 WBC 6.78 RBC 5.13 Hgb 17.7 H Hct 50.0 MCV 97.5 H MCH 34.5 H MCHC 35.4 RDW 12.1 Plt Count 240 MPV 9.4 Immature Gran % 0.1 Neutrophils % 60.6 Lymphocytes % 27.6 Monocytes % 8.6 Eosinophils % 2.7 Basophils % 0.4 Nucleated RBC % 0 Absolute Neutrophils 4.11 Absolute Lymphocytes 1.87 Absolute Monocytes 0.58 Absolute Eosinophils 0.18 Absolute Basophils 0.03 PT 10.0 INR 1.0 APTT 25.2 Sodium 140 Potassium 3.7 Chloride 103 Carbon Dioxide 28.4 Anion Gap 8.6 BUN 14 Creatinine 1.2 Estimated GFR/1.73 m2 59.86 Glucose 93 Calcium 8.9 Magnesium 2.2 Total Bilirubin 0.5 AST 20 ALT 47 Alkaline Phosphatase 91 Troponin I < 0.05 Total Protein 7.8 Albumin 4.0 Last Vital Signs Temp 36.5 C 01/07/21 15:31 Pulse 57 L 01/07/21 17:01 Resp 12 01/07/21 17:01 BP 142/86 H 01/07/21 17:01 Pulse Ox 98 01/07/21 17:01 COVID-19 Screening Have you, or household traveled for leisure in last 14 days?: No Had IN PERSON contact w/suspected or confirmed C-19 person: No
[2021-01-07 18:46] LABS: TSH (W/Ref FT4) 3.27 uIU/mL (0.36-3.74)
[2021-01-07 19:50] LABS: COVID-19 PCR Negative (Negative); Influenza A PCR Negative (Negative); Influenza B PCR Negative (Negative); RSV PCR Negative (Negative)
--- NOTE | 2021-01-07 20:04 | NUR.NOTE ---
unable to verify medications utilized hs list and pharmacy fill list Nursing Note:
[2021-01-07] MEDS: Normal Saline 1,000 ML 80 ML IV (20:05)
[2021-01-07] MEDS: Atorvastatin 40 MG TAB PO (20:25)
[2021-01-07] MEDS: Acetaminophen 325 MG TAB 650 MG PO (20:27)
[2021-01-08 03:21] VITALS: O2SAT 96
[2021-01-08 04:25] VITALS: BP 128/72; PULSE 54; RESP 16; TEMP 36.6; O2SAT 98
[2021-01-08 07:00] VITALS: PULSE 54
[2021-01-08 07:26] LABS: Abs Immature Grans 0.01 10^3/uL (0.0-0.06); Absolute Basophil Count 0.03 10^3/uL (0.0-0.2); Absolute Eosinophil Count 0.15 10^3/uL (0.0-0.7); Absolute Lymphocyte Count 1.54 10^3/uL (1.2-3.4); Absolute Monocyte Count 0.45 10^3/uL (0.1-0.8); Basophils % 0.6; Eosinophils % 3.1; HCT 43.3 % (40.0-50.0); HGB 15.2 g/dL (13.5-17.5); Immature Grans % 0.2; Lymphocytes % 31.6; MCH 34.2 pg (27.0-33.0); MCHC 35.1 % (32.0-36.0); MCV 97.3 fL (80-95); MPV 9.2 fL (8.0-11.0); Monocytes % 9.2; Neutrophils % 55.3; Nucleated RBC 0 %; Platelet Count 194 10^3/uL (130-400); RBC 4.45 10^6/uL (4.36-5.78); RDW 12.1 % (11.8-14.1); RDW-SD 43.5 fL; WBC 4.88 10^3/uL (4.4-10.8)
[2021-01-08 07:41] LABS: ALT 32 U/L (16-63); AST 15 U/L (15-37); Alkaline Phosphatase 68 U/L (46-116); BUN 11 mg/dL (7-18); Bilirubin, Total 0.5 mg/dL (0.2-1.0); CREATININE 1.1 mg/dL (0.70-1.30); Calcium 8.2 mg/dL (8.5-10.1); Chloride 107 mmol/L (98-107); Glucose 93 mg/dL (74-106); Sodium 143 mmol/L (136-145); Total Protein 6.1 g/dL (6.4-8.2)
[2021-01-08] MEDS: Aspirin 81 MG CHEW PO (08:00)
[2021-01-08] MEDS: PARoxetine 20 MG TAB PO (08:00)
[2021-01-08 08:01] VITALS: BP 139/83; PULSE 53; RESP 16; TEMP 36.6; O2SAT 98
[2021-01-08] MEDS: Cyclobenzaprine 10 MG TAB PO (08:44)
--- NOTE | 2021-01-08 10:07 | PT.INIE ---
Date of service: 01/08/21 Time of Service: 09:45 PT Notes Visit Reasons: TIA, CERVICAL PAIN Inpatient Physical Therapy Evaluation Date: 01/08/21 Referring Doctor: Marcus Jackson PT Orders: PT CONSULT: Limited Ability, Evaluate Precautions: Standard Patient Profile/Admitting Diagnosis: Orders received for this 70-year-old male. Patient apparently was some mild amnesia and visual focal change at home. This was sudden and recent with no history of chronicity. Patient is a nearly full recovery at this time. Orders have been received for physical therapy consult determine his functional ability compared to baseline. THe working diagnosis at this time is that patient may have had a mild TIA. Diagnostics have been unremarkable up to this point. PMHX: Medical History Adenomatous colon polyp Ankylosing spondylitis BPH loc w/o ur obs/LUTS Chronic cough Colorectal polyps (~11/07/18) Depression Diverticulosis Dysphagia Dysphonia Fibromyalgia Hyperlipidemia Iritis Osteoarthritis of knees, bilateral Postural tremor Tubulovillous adenoma (~2019) Surgical History H/O colonoscopy (12/31/07) screening colo with Dr Farr showed diverticulosis, sample showed inflammation only. S/P colonoscopy (~11/07/18) Social History/Home Situation: Patient lives in private home with his He is a [place] he still works part-time Equipment Owned/DME: Nothing Subjective: Patient states that he feels completely fine this morning Objective: Patient sitting in bed with head of bed to 45 degrees Mental Status: Well oriented alert to person place and time Pain: ROM: Right Upper Extremity: WNL Left Upper Extremity: WNL Right Lower Extremity: WNL Left Lower Extremity: WNL Strength: Right Upper Extremity: Globally 5/5 Left Upper Extremity: Globally 5/5 Right Lower Extremity: Globally 5/5 Left Lower Extremity: Globally 5/5 Bed Mobility/Transfers: Independent Supine-sit: Independent Sit-stand: Independent Stand-sit: Independent Gait: Ambulates freely in room, with front, backward, and lateral challenge Patient able to hold Modified [place] EO/EC Single leg stance up to 10 seconds, completed bilaterally Perturbation challenge in all directions is negative Balance: Static Sitting: NOrmal Dynamic Sitting: NOrmal Static Standing:NOrmal Dynamic Standing: Good Special Tests: Mobility Limitations Standardized Measure [facility] AM-PAC 6 clicks Basic Mobility Inpatient Short Form: Raw Score: 24 Standardized Score: 61.14 CMS Score: 0% Informed Consent/Education: Patient instructed in purpose of PT consult and plan of care. ASSESSMENT: Patient is a 70 year old male with history of good physical health Admitted with TIA and cervical pain Patient presents with the following impairment level findings: Patient appears to be at baseline Further Physical therapy treatment is not recommended at this time as patient is assumed at baseline. Impairments are contributing to the following functional limitations: AMPAC score 0% Patient is assessed as a Low complexity initial evaluation 91013 based on the following: History: see above Examination: see above Presentation: stable Decision Making: AMPAC of 0% Plan of Care/Treatment Plan: DISCHARGE RECOMMENDATIONS: To private home with without need for services. Follow up with PCP TREATMENT CODE/TIME: Low complexity initial evaluation [id number] 9:45 to 10:05 20 min of direct patient care Clint Soliman DPT
--- NOTE | 2021-01-08 12:40 | DSE_ITS ---
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 (3) HTN (hypertension): Status: Chronic Discharge Plan Disposition Patient Disposition: HOME Condition: Good Discharge Details Reason For Visit: TIA, CERVICAL PAIN Admit Date/Time: 01/07/21 17:37 Admit Provider: Marcus Jackson Attending Provider: Marcus Jackson Primary Care Provider: Faraz Kelley Hospital Course Hospital Course: This is a 70-year-old male patient who is a semiretired [place] who reported to the ED with transient neurological symptoms which involved a 15-minute episode of right visual field blurriness which self resolved and then hours later inability to remember names of famous people and pictures of family member s such as his niece though he recognized the faces. This lasted about 30 minutes and self resolved. He had a mild headache which was 1 out of 10 at the top of his head but no other neurological symptoms. At the time he reported to the ED it has been hours since the events. He denied any palpitations or chest discomfort. He has had no recent trauma. 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 He does have ankylosing spondylitis which is progressive with increased pain recently. He is very active without restrictions. The patient was not previously on aspirin was given a full dose aspirin in the ED which will be continued as a baby aspirin daily. He was observed overnight because of his symptoms with cardiac monitoring and treatment of his ankylosing spondylitis and headache probably secondary to pain from this problem. Teleneurology in the ED had nothing more to offer but did recommend MRI for follow-up. He had no arrhythmias noted on telemetry monitoring. No recurrence of any visual deficits or memory deficits. His statin was changed from lovastatin to atorvastatin 40mg daily to provide a higher potency. He will be scheduled for an outpt MRI brain. F/U with PCP in 1-2 weeks. Home Meds and New Rx's Prescriptions: New aspirin 81 mg Tablet,Chewable 81 mg PO DAILY Qty: 0 RF: 0 cyclobenzaprine 10 mg Tablet 10 mg PO TID PRN (Reason: muscle spasm) Qty: 20 RF: 0 atorvastatin [Lipitor] 40 mg Tablet 40 mg PO QPM Qty: 30 RF: 0 Continued paroxetine HCl 20 mg tablet 20 mg PO DAILY RF: 0 loratadine [Claritin] 10 mg tablet 10 mg PO DAILY RF: 0 albuterol sulfate [Ventolin HFA] 90 mcg/actuation HFA aerosol inhaler 2 puff inhalation Q6H PRNRF: 0 bisacodyl [Dulcolax (bisacodyl)] 5 mg tablet,delayed release (DR/EC) 5 mg PO ONCE Qty: 4 RF: 0 bisacodyl [Dulcolax (bisacodyl)] 5 mg tablet,delayed release (DR/EC) 5 mg PO ONCE Qty: 4 RF: 0 ibuprofen 200 MG capsule 200 mg PO DAILY RF: 0 Discontinued polyethylene glycol 3350 17 gram/dose powder 238 g PO ONCE Qty: 238 RF: 0 polyethylene glycol 3350 17 gram/dose powder 238 g PO ONCE Qty: 238 RF: 0 lovastatin 40 MG tablet 40 mg PO DAILY RF: 0 Discharge Instructions Instructions: Transient Ischemic Attack (DC) Stand Alone Forms: Nursing Discharge Form Referrals: Faraz Kelley MD [Primary Care Provider] - Activity:: Activity as Tolerated Equipment/Supplies:: No Equipment Needed Diet:: Heart Healthy Discharge Orders Discharge Orders: Discharge Order (Routine); Ordered 01/08/21 Ordered By: Subhash Post Other Ambulatory Orders: MR brain wo/w (Routine) Location: None Selected Ordered By: Subhash Post DS: Summary Time Spent with Patient providing and/or coordinating discharge services: Greater than 30 minutes Status at Discharge Functional status at discharge: independent ambulation Overall status at discharge: patient is back to baseline Mental Status: mental status grossly normal Speech and Movement: speech and movement normal Mood: congruent mood Affect: normal affect Exam Const General: cooperative and no acute distress Nutritional Appearance: overweight HENMT Head: normocephalic and atraumatic Eyes Sclera: sclerae normal Pupils: PERRL Resp Effort & Inspection: normal respiratory effort Auscultation: clear to auscultation bilaterally Cardio Rate: regular rate Rhythm: regular rhythm Heart Sounds: S1 normal and S2 normal Neuro General: patient alert, patient oriented x3 and no focal motor deficits Cranial Nerves: other (no visual field deficits) Cognition: normal cognition Speech: speech normal Extrem General: no pedal edema and no calf tenderness Psych Mental Status: mental status grossly normal Speech and Movement: speech and movement normal Mood: congruent mood Affect: normal affect DS: Data Vitals/I&O Vitals and I&O: Vital Signs Temperature 36.6 C 01/08/21 08:01 Temperature Source Tympanic 01/08/21 08:01 Pulse 53 L 01/08/21 08:01 Pulse Rhythm Regular 01/08/21 08:00 Pulse 63 01/07/21 18:40 Respiratory Rate 16 01/08/21 08:01 Respiratory Effort Non-Labored 01/08/21 08:00 Respiratory Depth Normal 01/08/21 08:00 Respiratory Pattern Normal 01/08/21 08:00 Blood Pressure 139/83 01/08/21 08:01 Blood Pressure Mean 100 01/07/21 18:32 Blood Pressure Position Supine 01/07/21 15:31 Pulse Oximetry 98 01/08/21 08:01 Oxygen Delivery Method Room Air 01/08/21 08:01 Oxygen Flow Rate 0 01/08/21 08:01 Pain Level 0 01/08/21 04:25 Intake & Output 01/07/21 01/08/21 01/08/21 22:59 11:59 23:59 Intake Total Output Total Balance Weight Intake: IV Oral Output: Urine Other: Urine Color Urine Appearance Urine Odor Voiding Methods Data Completed and Pending Labs on day of discharge: Labs from last 24 hours 01/08/21 01/08/21 01/07/21 07:00 07:00 18:49 WBC 4.88 RBC 4.45 Hgb 15.2 D Hct 43.3 MCV 97.3 H MCH 34.2 H MCHC 35.1 RDW 12.1 Plt Count 194 MPV 9.2 Immature Gran % 0.2 Neutrophils % 55.3 Lymphocytes % 31.6 Monocytes % 9.2 Eosinophils % 3.1 Basophils % 0.6 Nucleated RBC % 0 Absolute Neutrophils 2.70 Absolute Lymphocytes 1.54 Absolute Monocytes 0.45 Absolute Eosinophils 0.15 Absolute Basophils 0.03 PT INR APTT Sodium 143 Potassium 4.0 Chloride 107 Carbon Dioxide 30.0 Anion Gap 6.0 BUN 11 Creatinine 1.1 Estimated GFR/1.73 m2 >= 60.00 Glucose 93 Calcium 8.2 L Magnesium Total Bilirubin 0.5 AST 15 ALT 32 Alkaline Phosphatase 68 Troponin I Total Protein 6.1 L Albumin 3.0 L TSH COVID-19 Source Nasopharyx SARS-CoV-2 (PCR) Negative Influenza Type A (PCR) Negative Influenza Type B (PCR) Negative RSV (PCR) Negative 01/07/21 01/07/21 01/07/21 15:39 15:35 15:35 WBC 6.78 RBC 5.13 Hgb 17.7 H Hct 50.0 MCV 97.5 H MCH 34.5 H MCHC 35.4 RDW 12.1 Plt Count 240 MPV 9.4 Immature Gran % 0.1 Neutrophils % 60.6 Lymphocytes % 27.6 Monocytes % 8.6 Eosinophils % 2.7 Basophils % 0.4 Nucleated RBC % 0 Absolute Neutrophils 4.11 Absolute Lymphocytes 1.87 Absolute Monocytes 0.58 Absolute Eosinophils 0.18 Absolute Basophils 0.03 PT INR APTT Sodium 140 Potassium 3.7 Chloride 103 Carbon Dioxide 28.4 Anion Gap 8.6 BUN 14 Creatinine 1.2 Estimated GFR/1.73 m2 59.86 Glucose 93 Calcium 8.9 Magnesium 2.2 Total Bilirubin 0.5 AST 20 ALT 47 Alkaline Phosphatase 91 Troponin I < 0.05 Total Protein 7.8 Albumin 4.0 TSH 3.27 COVID-19 Source SARS-CoV-2 (PCR) Influenza Type A (PCR) Influenza Type B (PCR) RSV (PCR) 01/07/21 15:35 WBC RBC Hgb Hct MCV MCH MCHC RDW Plt Count MPV Immature Gran % Neutrophils % Lymphocytes % Monocytes % Eosinophils % Basophils % Nucleated RBC % Absolute Neutrophils Absolute Lymphocytes Absolute Monocytes Absolute Eosinophils Absolute Basophils PT 10.0 INR 1.0 APTT 25.2 Sodium Potassium Chloride Carbon Dioxide Anion Gap BUN Creatinine Estimated GFR/1.73 m2 Glucose Calcium Magnesium Total Bilirubin AST ALT Alkaline Phosphatase Troponin I Total Protein Albumin TSH COVID-19 Source SARS-CoV-2 (PCR) Influenza Type A (PCR) Influenza Type B (PCR) RSV (PCR) [facility] Medical History Adenomatous colon polyp Ankylosing spondylitis BPH loc w/o ur obs/LUTS Chronic cough Colorectal polyps (~11/07/18) Depression Diverticulosis Dysphagia Dysphonia Fibromyalgia Hyperlipidemia Iritis Osteoarthritis of knees, bilateral Postural tremor Tubulovillous adenoma (~2019) Surgical History H/O colonoscopy (12/31/07) screening colo with Dr Farr showed diverticulosis, sample showed inflammation only. S/P colonoscopy (~11/07/18) Social History Smoking/Tobacco Use Status: Former Tobacco Use Smoking risk assessment performed?: Yes Drug use: Never Do you feel safe at home: Yes Do you feel safe in your relationship?: Yes
--- NOTE | 2021-01-26 08:49 | ZIOP_ITS ---
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 ?The patient was in normal sinus rhythm for the majority of the recording with an average heart rate of 64 bpm. ?There were 11 episodes of supraventricular tachycardia with the longest lasting 45 beats. None of these were recorded as symptomatic. There were rare PACs. ?There were no episodes of ventricular tachycardia and rare PVCs. ?There were no episodes of atrial fibrillation and no pauses greater than 3 seconds. There was no evidence of high degree heart block. ?There were 11 patient triggered events all associated with sinus rhythm and occasional PAC/PVC.
== END 2021-01-08 14:25 | disposition home or self-care (01) ==
LOC: ER 18:06 → MS 18:58
PROVIDERS: Admitting Provider Family Medicine; Emergency Provider Physician Assistant; PCP Internal Medicine; Visit Provider Family Medicine
DX: G45.9 Transient cerebral ischemic attack, unspecified (principal); M45.3 Ankylosing spondylitis of cervicothoracic region; I10 Essential (primary) hypertension; N40.0 Benign prostatic hyperplasia without lower urinary tract symptoms; F32.9 Major depressive disorder, single episode, unspecified; R13.10 Dysphagia, unspecified; M79.7 Fibromyalgia; M17.0 Bilateral primary osteoarthritis of knee; Z87.891 Personal history of nicotine dependence
CPT/HCPCS: 36415; 36416; 70496; 70498; 80053; 82962; 93005; 96361; 96374; 99217; 99220; 99285; 71046; 83735; 84443; 84484; 85025; 85610; 85730; 93010; G0378; J0131; J3490

== ENCOUNTER 2021-01-09 15:48 | Outpatient (REF) | payer MEDICARE, SELFPAY | END 2021-01-09 15:49 | disposition home or self-care (01) | LOC: RT 15:48 | PROVIDERS: PCP Internal Medicine; Visit Provider Internal Medicine | DX: Z86.73 Personal history of transient ischemic attack (TIA), and cerebral infarction without residual deficits | CPT/HCPCS: 93246 ==

== ENCOUNTER 2021-01-26 01:32 | Outpatient (CLI) | payer MEDICARE, SELFPAY ==
--- NOTE | 2021-01-26 | DI.MRI_ITS ---
EXAM: MR BRAIN WO CLINICAL HISTORY: H/O TIA,Z86.79 TECHNIQUE: Multiplanar multisequence MRI of the brain was performed. COMPARISON: CT CT BRAIN NECK CTA from 01/07/2021 FINDINGS: CEREBRAL PARENCHYMA: No evidence of intracranial hemorrhage, mass effect nor shift of midline structu re. No extraaxial fluid collections. Ventricles are not enlarged nor shifted. There is no significant focal signal abnormality in the cerebellar hemispheres nor within the rocío, m idbrain, and thalami. There multiple 5 small foci of signal abnormality in the Cyndy in supra ventricular white matter there is seen on FLAIR imaging, not associated with hemorrhage or surrounding edema nor abnormal signal on diffusion imaging to suggest acute ischemic event. PITUITARY GLAND: No mass nor parasellar abnormality. No obvious abnormality in the cavernous sinuses. FLOW VOIDS: The expected flow void are noted. No evidence of obvious aneurysm nor obvious vascular ma lformation. Left vertebral artery is dominant at the skull base. PARANASAL SINUSES: The visualized paranasal sinuses appear unremarkable. ORBITS: No obvious abnormal findings. IMPRESSION: 1. There are multiple small non-specific foci of signal abnormality in the periventricular white kat er, nonhemorrhagic and not associated with surrounding edema nor abnormal enhancement on diffusion im aging. No evidence of territorial infarction. No evidence of intracranial hemorrhage. 2. Recommend repeat MRI scan in 6 months to ensure stability. DATA REPOSITORY:
== END 2021-01-26 01:52 ==
PROVIDERS: PCP Internal Medicine; Visit Provider Internal Medicine
DX: G45.9 Transient cerebral ischemic attack, unspecified (principal)
CPT/HCPCS: 70551

== ENCOUNTER 2021-01-26 08:49 | Outpatient (CLI) | payer MEDICARE, SELFPAY | END 2021-01-26 08:50 | LOC: CARDO 01-30 10:06 | PROVIDERS: PCP Internal Medicine; Referring Provider Internal Medicine; Visit Provider Internal Medicine Cardiovascular Disease | DX: G45.9 Transient cerebral ischemic attack, unspecified (principal); I47.1 Supraventricular tachycardia; I49.1 Atrial premature depolarization; I49.3 Ventricular premature depolarization | CPT/HCPCS: 93248 ==

== ENCOUNTER 2021-02-10 10:06 | Outpatient (REF) | payer MEDICARE, SELFPAY ==
[2021-02-10 13:36] LABS: Calculated LDL 75 mg/dL (<100); Cholesterol 142 mg/dL (<200); HDL Cholesterol 35 mg/dL (40-60); Triglyceride 164 mg/dL (<150)
== END 2021-02-10 10:07 | disposition home or self-care (01) ==
LOC: NCHCN 10:06
PROVIDERS: PCP Internal Medicine; Visit Provider Internal Medicine
DX: E78.5 Hyperlipidemia, unspecified (principal)
CPT/HCPCS: 80061

== ENCOUNTER → 2021-07-21 09:54 | Outpatient (BNVA) | payer MEDICARE, SELFPAY | PROVIDERS: PCP Internal Medicine; Referring Provider Internal Medicine; Visit Provider Physical Therapy Assistant | DX: R13.10 Dysphagia, unspecified (principal); Z12.11 Encounter for screening for malignant neoplasm of colon; Z86.010 Personal history of colon polyps | CPT/HCPCS: 99214 ==

== ENCOUNTER 2021-07-28 01:02 | Outpatient (CLI) | payer MEDICARE, SELFPAY ==
[2021-07-28 10:49] LABS: Source Nasal/Nares
[2021-07-28 13:36] LABS: COVID-19 PCR Negative (Negative)
== END 2021-07-28 01:03 | disposition home or self-care (01) ==
LOC: LBO 01:02
PROVIDERS: PCP Internal Medicine; Visit Provider Surgery
DX: Z20.822 Contact with and (suspected) exposure to COVID-19 (principal); Z01.818 Encounter for other preprocedural examination
CPT/HCPCS: 87635

== ENCOUNTER 2021-07-31 10:35 | Day surgery (SDC) | payer MEDICARE, SELFPAY ==
--- NOTE | 2021-07-31 06:42 | ENDO_ITS ---
Date of service: 07/31/21 Time of Service: 13:03 Endoscopy Report DATE OF PROCEDURE: 07/31/21 PRE-OP DIAGNOSIS: Dysphagia/ Hx of polyps PROCEDURE: 1. EGD with biopsies 2. Colonoscopy with polypectomy SURGEON: Lilly Baeza ANESTHESIA TYPE: General:No Airway (Melissa Bojorquez CRNA) ESTIMATED BLOOD LOSS: 3 PATHOLOGY: other COMPLICATIONS: None DISPOSITION: same day INDICATIONS: Patient reports a several year history of dysphagia which is associated with a cough and at times phlegm. He reports having a barium swallow years ago, without a diagnosis. Unable to locate the results of his barium swallow. These symptoms occur most often at the end of the day, when he relaxes or lies down. He has used PPI in the past with some improvement in his symptoms. -Discussed Upper endoscopy procedure and the need to be NPO after midnight the night prior. Discussed possible complications of the procedure to include bleeding, pain, perforation, missed small lesion/polyp/ulcers, sore throat, aspiration and adverse reaction to the medications or sedation. Questions were answered to patient?s satisfaction. No guarantees were implied or given. P// EGD under sedation (2) History of colonic polyps: The patient is here for Colonoscopy pre-op. His last screening was in 2019 and was remarkable for tubular adenoma with high grade dysplasia and tubulovillous adenoma. He has no family history of colon cancer. He has not had any bowel habit changes. -Discussed colonoscopy bowel prep as well as the procedure. Discussed possible complications of the procedure to include bleeding, pain, perforation, missed small lesion/polyp, sore throat, aspiration and adverse reaction to the medications. Questions were answered to patient?s satisfaction. No guarantees were implied or given. PREP: Miralax/Dulcolax PROCEDURE START TIME: 13:03 PROCEDURE END TIME: 13:44 COLONOSCOPY RETRACTION TIME: 19 minutes FINDINGS: Inflammation of the stomach and esophagus polyps diverticulosis PROCEDURE DESCRIPTION: After informed consent was obtained the patient was take to the procedure room and placed in a supine position. Monitors were applied and a time out was done. The patients name, date of , procedure type, allergies to medications and metal in their body was reviewed. A bite block was placed and the patient was sedated. Once sedated and comfortable the gastroscope was advanced through the oropharynx which was grossly normal into the esophagus. The proximal and mid- esophagus were normal. In the distal esophagus there was mild inflammation noted. The scope was advanced into the stomach and through the pylorus into the 3rd portion of the duodenum. The duodenum was noted to be have some mild inflammation. Biopsies were done to rule out celiac. The scope was retracted back into the stomach. There was mild inflammation noted in the antrum and body. Biopsies were done to rule out H. pylori. There were no ulcers. The scope was retro-flexed. The cardia and fundus were noted to be normal. There was no hiatal hernia noted. The scope was retracted back into the esophagus and biopsies were done of the GE junction to rule out Pittman's. The Z line was regular. The GE junction was at 35 cm. There was mild inflammation at the GE junction. While the patient was still sedated they were placed in a left decubitous position. A rectal exam was done. External exam was normal. Internal exam revealed a normal sphincter tone and no palpable masses. The prostate felt smooth and slightly enlarged. The scope was then introduced and retro-flexed. No internal hemorrhoids, masses or polyps were identified on retroflexion. The scope was then advanced to the cecum without difficulty. The ileocecal valve and appendiceal orifice were identified. The prep was adequate. The scope was then slowly retracted over 19 minutes back into the rectum. Polyps were removed with cold forceps in the cecum x1, ascending polyps x2, descending polyp and sigmoid polyp. There was moderate descending and sigmoid diverticulosis noted. The scope was removed and the patient was woken up and taken back to Same day surgery in stable condition. The patient tolerated the procedure well and there were no immediate complications. Follow up: 5 years
--- NOTE | 2021-07-31 06:43 | W.PM.DSUDISC ---
Discharge Plan Disposition Patient Disposition: HOME Condition: Good Discharge Details Reason For Visit: Colonoscopy/EGD Attending Provider: Lilly Baeza Primary Care Provider: Faraz Kelley Home Meds and New Rx's Prescriptions: Continued paroxetine HCl 20 mg tablet 20 mg PO DAILY RF: 0 loratadine [Claritin] 10 mg tablet 10 mg PO DAILY RF: 0 albuterol sulfate [Ventolin HFA] 90 mcg/actuation HFA aerosol inhaler 2 puff inhalation Q6H PRNRF: 0 aspirin 81 mg Tablet,Chewable 81 mg PO DAILY Qty: 0 RF: 0 cyclobenzaprine 10 mg Tablet 10 mg PO TID PRN (Reason: muscle spasm) Qty: 20 RF: 0 atorvastatin [Lipitor] 40 mg Tablet 40 mg PO QPM Qty: 30 RF: 0 ibuprofen 200 mg capsule 200 mg PO PRN RF: 0 Discontinued polyethylene glycol 3350 17 gram/dose powder 238 g PO ONCE Qty: 238 RF: 0 bisacodyl [Dulcolax (bisacodyl)] 5 mg tablet,delayed release (DR/EC) 5 mg PO ONCE Qty: 4 RF: 0 Discharge Instructions Instructions: Diverticulosis (DC), Colorectal Polyps (DC), Diet for Stomach Ulcers and Gastritis (ED), Esophagitis (DC), Gastritis (DC) Additional Instructions: Findings: diverticulosis polyps x5 inflammation of the stomach and esophagus Follow up: 5 years for next colonoscopy Please call if you develop: fevers >101.5 Nausea or Vomiting Abdominal pain that is not transient Rectal bleeding that is more then a tbsp A hard abdomen and inability to pass gas DAY SURGERY UNIT POST ENDOSCOPY INSTRUCTIONS Instructions for everyone who is given Anesthesia: For your safety, please do the following for the next 24 Hours: a. Do not drive or operate dangerous equipment b. Do not drink alcohol beverages or use any recreational drugs for the first 24 hours or while taking pain medications. The medications in your body may have a reaction that can be dangerous. c. Do not make any important decisions or sign any important papers 1. Generally there are no restrictions on your activity after a day or so has gone by, but you may feel a bit fatigued for a few days. 2. After you arrive home you may have a light meal and return to a normal diet as you can tolerate it without feeling sick to your stomach. 3. After surgery, you may feel pain or discomfort. This should be only transient, but if it persists please contact your doctor. 4. If there are any questions regarding the findings of your procedure, please feel free to contact your doctor. 6. If you are unable to contact your doctor with a problem, contact the hospital at [phone]. 7. Continue all your regular medications unless directed otherwise. I understand the above instructions and have no questions. Signature of Patient or Responsible Adult Escort Date/Time Name of Responsible Adult Escort Signature of Nurse Date/Timen Activity:: Activity as Tolerated Diet:: high fiber, low acid Discharge Orders Discharge Orders: Discharge Order (Routine); Ordered 07/31/21 Ordered By: Lilly Baeza
[2021-07-31 10:48] VITALS: BP 147/100; PULSE 78; RESP 16; TEMP 36.5; O2SAT 99
[2021-07-31] MEDS: Lactated Ringers 1,000 ML 80 ML IV (11:13)
--- NOTE | 2021-07-31 11:25 | W.ANESPRE ---
General Info Date of Service Date Performed: 07/31/21 Height: 6 ft Weight: 88.6 kg Body Mass Index (BMI): 26.4 Surgical Procedure: Operation Date: 07/31/21 12:35 Proposed Procedures Side Surgeon p Colonoscopy/Gastroscopy Lilly Baeza MD Meds Allergies and Home Medications Allergies Allergy/AdvReac Type Severity Reaction Status Date / Time No Known Allergies Allergy Verified 07/31/21 11:00 Home Medication Medication Instructions Recorded albuterol sulfate 90 mcg/actuation 2 puff INHALATION Q6H PRN 09/02/20 aerosol inhaler loratadine 10 mg tablet 10 mg PO DAILY 09/02/20 paroxetine HCl 20 mg tablet 20 mg PO DAILY 09/02/20 aspirin 81 mg PO DAILY #0 tab 01/08/21 atorvastatin [Lipitor] 40 mg PO QPM #30 tab 01/08/21 cyclobenzaprine 10 mg PO TID PRN #20 tab 01/08/21 bisacodyl 5 mg tablet,delayed 5 mg PO ONCE #4 tab 07/21/21 release ibuprofen 200 mg capsule 200 mg PO PRN cap 07/21/21 polyethylene glycol 3350 17 238 g PO ONCE #238 g 07/21/21 gram/dose oral powder Current Visit Medications: Current Medications Generic Name Dose Route Start Last Admin Trade Name Freq PRN Reason Stop Dose Admin Hyoscyamine Sulfate 0.125 mg 07/31/21 06:43 Hyoscyamine 0.125 Mg Sl/Oral/Chew SL DIRECTED PRN Ringer's Solution 1,000 mls @ 80 mls/hr 07/31/21 06:00 07/31/21 11:13 IV 08/27/21 23:59 80 mls/hr INFUSION HOLLAND Administration IV Miscellaneous Supplies 1 each 07/31/21 06:00 Iv Access IV 08/27/21 23:59 DIRECTED HOLLAND Ondansetron HCl 4 mg 07/31/21 06:43 Ondansetron 4 Mg/2 Ml Vial IVP Q4H PRN PRN Nausea / Vomiting Sodium Chloride 0 ml 07/31/21 06:00 Normal Saline Flush 10 Ml Syr IV 08/27/21 23:59 PRN PRN Sodium Chloride 0 ml 07/31/21 06:00 Normal Saline 10 Ml Vial IJ 08/27/21 23:59 DIRECTED PRN Sterile Water 0 ml 07/31/21 06:00 Water,Injection,Sterile 10 Ml Vial IJ 08/27/21 23:59 DIRECTED PRN PFSH Active Problems Active Problems: Problem Status Onset Code Ankylosing spondylitis of cervicothoracic region M45.3 HTN (hypertension) I10 TIA (transient ischemic attack) G45.9 S/P colonoscopy ~11/07/18 Z98.890 Colorectal polyps ~11/07/18 K63.5 Encounter for screening colonoscopy Z12.11 H/O colonoscopy 12/31/07 Z98.890 Diverticulosis K57.90 Depression F32.9 BPH loc w/o ur obs/LUTS N40.0 Chronic cough R05 Dysphagia R13.10 Dysphonia R49.0 Medical History Medical History Adenomatous colon polyp Ankylosing spondylitis BPH loc w/o ur obs/LUTS Chronic cough Colorectal polyps (~11/07/18) Depression Diverticulosis Dysphagia Dysphonia Fibromyalgia Hyperlipidemia Iritis Osteoarthritis of knees, bilateral Postural tremor Tubulovillous adenoma (~2019) Surgical History Surgical History H/O colonoscopy (12/31/07) screening colo with Dr Farr showed diverticulosis, sample showed inflammation only. S/P colonoscopy (~11/07/18) Tobacco Smoking/Tobacco Use Status: Former Tobacco Use Alcohol Alcohol Intake: never Substance Use Substance use: Never Substance use type: does not use Vital Signs and Lab Results Vital Signs Most Recent Vital Signs in EMR: Most Recent Vital Signs Temp Pulse Resp BP Pulse Ox 36.5 C 78 16 147/100 H 99 07/31/21 10:48 07/31/21 10:48 07/31/21 10:48 07/31/21 10:48 07/31/21 10:48 Lab Results Blood Type / Crossmatch: No Data to Display Complete Blood Count: No Data to Display Complete Metabolic Panel: No Data to Display Liver Function Panel: No Data to Display Coagulation Panel: No Data to Display Cardiac Panel: No Data to Display Arterial Blood Gas: No Data to Display Venous Blood Gas: No Data to Display Pancreas Panel: No Data to Display Thyroid Panel: No Data to Display Infectious Disease: Coronavirus (COVID-19)(PCR) Negative (Negative) 07/28/21 09:47 07/28/21 Coronavirus 2019 Source Nasal/Nares 07/28/21 09:47 07/28/21 Blood Cultures: No Data to Display Toxicology Panel: No Data to Display Imaging and Studies Imaging and Studies EKG Summary: 12/2020: Exam: Resting ECG Patient Location: E HR:68 bpm ECG Measurements Heart Rate 68 AXIS WV 206 P 38 QRSd 106 QRS -9 QT 422 T32 QTc 451 Conclusion Sinus rhythm...normal P axis, V-rate 60- 99 I have reviewed and interpreted ECG and agree with software generated interpretation. Anesthesia Assessment and Plan Anesthesia History Personal History: No History of Anesthesia Complications Family History: No Family History of Anesthesia Complications Exercise Tolerance Exercise Tolerance: Metabolic Equivalents>4 Pertinent Negatives Pertinent Negatives: No Major Cardiovascular Symptoms or Complaints and No Major Pulmonary Symptoms or Complaints Cardiac & Pulmonary Exam Cardiac Exam: Normal S1/S2 Heart Sounds Pulmonary Exam: Clear Bilateral Breath Sounds Airway Exam Known Difficult Airway: No Mallampati Class: 1 Mouth Opening: Normal (> 3cm) Thyromental Distance: Greater than 3 cm Neck Range of Motion: Full ROM Neck Circumference: Normal Teeth Condition: Normal Dentition ASA Classification ASA Score: ASA 2 Emergency Case?: No NPO Status NPO Status: NPO Clears >2 hours, Solids >8 hours Anesthesia Plan Resuscitation Status: Full Code Anesthesia Technique: General Anesthesia Airway Planned: Natural Airway Pain Management: Surgeon and patient request nerve block Monitors Used: Standard Monitors
[2021-07-31 12:43] VITALS: BMI 26.4
--- NOTE | 2021-07-31 13:07 | BOWEL_PTH ---
PATIENT: Gibson Car LOC: [facility] U#:[id number] AGE/SX: 71/M ROOM: RE07/31/[address]: Lilly Baeza MD : 1950 BED: DIS: 07/31/2021 SPEC #: [id number] RECD: 07/31/21 18:41 STATUS: MARCOS RE #: [id number] MICHELLE: 07/31/21 13:[address]: Lilly Baeza DEPT: Surgical Specimen RECD BY: Bren Villegas ENTERED: 07/31/21 18:43 SP TYPE: Bowel OTHR DR: Faraz Kelley Tissues: 1 - BIOPSY BOWEL 2 - STOMACH BIOPSY 3 - ESOPHAGUS BIOPSY 4 - BIOPSY BOWEL 5 - BIOPSY BOWEL 6 - BIOPSY BOWEL 7 - BIOPSY BOWEL Procedures: GROSS AND MICRO LEVEL 4 Comments: [id number]
[2021-07-31 13:59] VITALS: BP 103/52; PULSE 63; RESP 16; TEMP 36.1; O2SAT 96
--- NOTE | 2021-07-31 14:02 | W.ANESPOSTOP ---
Postoperative Evaluation Date, Time and Location Date Performed: 07/31/21 Time Performed: 14:02 Patient Location: Day Surgery Unit Vital Signs Most Recent Imported Vital Signs: Most Recent Vital Signs Temp Pulse Resp BP Pulse Ox 36.1 C L 63 16 103/52 L 96 07/31/21 13:59 07/31/21 13:59 07/31/21 13:59 07/31/21 13:59 07/31/21 13:59 Most Recent Manually Entered Vital Signs: Adult Blood Pressure: 103/52 Heart Rate: 63 Respirations: 16 Oxygen Saturation (%): 96 Temperature (C): 36.1 C Pain Score (0-10 Scale): 0 Pain Score Most Recent Pain Score: Most Recent Pain Score Pain Level 0 07/31/21 13:59 Assessment Mental Status: Awake (Alert & Oriented to Patient Baseline) Airway and Respiratory Function: Patent airway with normal (patient baseline) respiratory exam Cardiovascular Function: Hemodynamically Stable Hydration Status: Adequately Hydrated Nausea & Vomiting: No Nausea or Vomiting Pain: Pt. Denies Any Pain Peripheral Nerve Block: Patient did not receive a nerve block
[2021-07-31 14:03] VITALS: BP 103/52; PULSE 63; RESP 16; TEMPC 36.1; O2SAT 96
--- NOTE | 2021-07-31 14:20 | W.ANESPOSTOP ---
Postoperative Evaluation Date, Time and Location Date Performed: 07/31/21 Time Performed: 14:10 Patient Location: Day Surgery Unit Vital Signs Most Recent Imported Vital Signs: Most Recent Vital Signs Temp Pulse Resp BP Pulse Ox 36.1 C L 63 16 103/52 L 96 07/31/21 13:59 07/31/21 13:59 07/31/21 13:59 07/31/21 13:59 07/31/21 13:59 Most Recent Vital Signs Temp Pulse Resp BP Pulse Ox 36.1 C L 63 16 103/52 L 96 07/31/21 13:59 07/31/21 13:59 07/31/21 13:59 07/31/21 13:59 07/31/21 13:59 Pain Score Most Recent Pain Score: Most Recent Pain Score Pain Level 0 07/31/21 13:59 Assessment Mental Status: Awake (Alert & Oriented to Patient Baseline) Airway and Respiratory Function: Patent airway with normal (patient baseline) respiratory exam Cardiovascular Function: Hemodynamically Stable Hydration Status: Adequately Hydrated Nausea & Vomiting: No Nausea or Vomiting Pain: Pt. Denies Any Pain Peripheral Nerve Block: Patient did not receive a nerve block
[2021-07-31 14:32] VITALS: BP 126/91; PULSE 67; RESP 16; TEMP 36.1; O2SAT 99
== END 2021-07-31 14:46 | disposition home or self-care (01) ==
LOC: SUR 10:35
PROVIDERS: PCP Internal Medicine; Visit Provider Surgery
PROC: (CPT 45380; principal; 2021-07-31 12:30)
DX: Z09 Encounter for follow-up examination after completed treatment for conditions other than malignant neoplasm (principal); R13.10 Dysphagia, unspecified; Z86.010 Personal history of colon polyps; K29.70 Gastritis, unspecified, without bleeding; K20.90 Esophagitis, unspecified without bleeding; K57.30 Diverticulosis of large intestine without perforation or abscess without bleeding; K29.80 Duodenitis without bleeding; K31.89 Other diseases of stomach and duodenum; D12.0 Benign neoplasm of cecum; D12.2 Benign neoplasm of ascending colon; D12.3 Benign neoplasm of transverse colon
CPT/HCPCS: 45380; 43239; 88305; J2001

== ENCOUNTER 2022-10-15 11:38 | Outpatient (REF) | payer MEDICARE, SELFPAY ==
[2022-10-15 15:19] LABS: Anion Gap 9.5 mmol/L (3-11); BUN 16 mg/dL (7-18); CO2 25.5 mmol/L (21.0-32.0); CREATININE 0.9 mg/dL (0.70-1.30); Chloride 104 mmol/L (98-107); Estimated GFR 90.74 (mL/min/1.73m2); Glucose 115 mg/dL (74-106); Potassium 4.4 mmol/L (3.5-5.1); Sodium 139 mmol/L (136-145)
[2022-10-15 23:13] LABS: PSA, Screening 14.1 ng/mL (<=6.5)
== END 2022-10-15 11:39 | disposition home or self-care (01) ==
LOC: NCHCN 11:38
PROVIDERS: PCP Internal Medicine; Visit Provider Family Medicine
DX: Z00.00 Encounter for general adult medical examination without abnormal findings (principal); Z12.5 Encounter for screening for malignant neoplasm of prostate
CPT/HCPCS: 80048; 84153

== ENCOUNTER → 2023-01-08 10:47 | Outpatient (BNVA) | payer MEDICARE, SELFPAY | PROVIDERS: PCP Internal Medicine; Referring Provider Internal Medicine; Visit Provider Nurse Practitioner Gerontology | DX: R97.20 Elevated prostate specific antigen [PSA] (principal); N40.0 Benign prostatic hyperplasia without lower urinary tract symptoms; Z80.42 Family history of malignant neoplasm of prostate | CPT/HCPCS: 36415; 99215 ==

== ENCOUNTER 2023-01-08 11:34 | Outpatient (CLI) | payer MEDICARE, SELFPAY ==
[2023-01-08 22:05] LABS: PSA, Diagnostic 16.6 ng/mL (<=6.5)
== END 2023-01-08 11:35 | disposition home or self-care (01) ==
LOC: LBN 11:35
PROVIDERS: PCP Internal Medicine; Visit Provider Nurse Practitioner Gerontology
DX: R97.20 Elevated prostate specific antigen [PSA] (principal)
CPT/HCPCS: 84153

== ENCOUNTER 2023-01-14 13:48 | Outpatient (REF) | payer MEDICARE, SELFPAY ==
[2023-01-14 14:04] LABS: CREATININE 1.1 mg/dL (0.70-1.30); Estimated GFR 71.32 (mL/min/1.73m2)
== END 2023-01-14 13:49 | disposition home or self-care (01) ==
LOC: LBN 13:48
PROVIDERS: PCP Internal Medicine; Visit Provider Nurse Practitioner Gerontology
DX: R97.20 Elevated prostate specific antigen [PSA] (principal); Z01.812 Encounter for preprocedural laboratory examination
CPT/HCPCS: 82565

== ENCOUNTER 2023-01-28 16:13 | Emergency (ER) | payer MEDICARE, SELFPAY ==
[2023-01-28 16:15] VITALS: BP 172/82; PULSE 62; RESP 18; TEMP 37; O2SAT 98
--- NOTE | 2023-01-28 16:15 | DI.RAD_ITS ---
Exam(s) XR FINGER LT RING EXAM: XR FINGER LT RING CLINICAL HISTORY: laceration finger with band saw. TECHNIQUE: 2D digital imaging was performed. COMPARISON: No exams were available for comparison FINDINGS: 3 views There is dorsal laceration and well-defined band saw-type osseous linear defect in the proximal aspec t of the middle phalanx of the 4th-ring finger. No significant displacement. There is also a 1 mill imeter calcific density dorsal to the PIP joint, possibly not related to the acute injury. Remainder of the finger osseous structures appear intact. IMPRESSION: Incomplete oblique band saw-type linear lucent defect in the bone of the proximal aspect of the middl e phalanx of the 4th finger. No significant displacement. No radiopaque foreign body. DATA REPOSITORY: RADIATION DOSE DELIVERED:
--- NOTE | 2023-01-28 16:28 | ED.GENADUL_ITS ---
Discharge Plan Disposition Patient Disposition: Home Discharge Details Clinical Impression: Open fracture of phalanx of finger Primary Care Provider: Faraz Kelley ED Provider: Bren Smith Home Meds and New Rx's Prescriptions: New cephalexin 500 mg tablet 500 mg PO Q6H 7 Days Qty: 28 0RF Continued paroxetine HCl 20 mg tablet 20 mg PO DAILY loratadine [Claritin] 10 mg tablet 10 mg PO DAILY albuterol sulfate [Ventolin HFA] 90 mcg/actuation HFA aerosol inhaler 2 puff inhalation Q6H PRN Patient Comments: no longer taking pantoprazole 40 mg tablet,delayed release (DR/EC) 40 mg PO DAILY aspirin 81 mg Tablet,Chewable 81 mg PO DAILY Qty: 0 0RF cyclobenzaprine 10 mg Tablet 10 mg PO TID PRN (Reason: muscle spasm) Qty: 20 0RF atorvastatin [Lipitor] 40 mg Tablet 40 mg PO QPM Qty: 30 0RF prednisolone acetate 1 % drops,suspension 3 drp ophthalmic (eye) DAILY PRN Patient Comments: INSTILL ONE DROP FOUR TIMES A DAY IN THE LEFT EYE FOR 4 DAYS, THEN ONE DROP THREE TIMES A DAY IN THE LEFT EYE FOR 3 DAYS, THEN 1 DROP TWO TI ibuprofen 200 mg capsule 200 mg PO PRN Discharge Instructions Instructions: Finger Fracture (ED) Additional Instructions: Take antibiotic as prescribed Yogurt daily or acidophilus pills while taking antibiotics Follow-up with orthopedics as you have an open fracture to your finger Keep the splint in place for the next 7 days at the discretion of orthopedics Suture removal in 12 days Return for spreading redness, fever, worsening pain May take ibuprofen or Tylenol as needed for discomfort Keep dry for at least 24 hours and do not submerge in water until sutures have been removed Referrals: Jun Collins MD [ [facility] STAFF PHYSICIAN] - 2 days Discharge Data Discharge Date/Time-TO BE ENTERED AT DEPARTURE: 01/28/23 17:45 Medical Decision Making This 72-year-old male presents with laceration to hand X-ray was ordered secondary to mechanism which shows evidence of fracture, suspect open fracture per radiology interpretation my review We will place on Keflex Tetanus is up-to-date, 2019 Neurovascularly intact Placed in a splint and 4 sutures were applied, vertical mattress sutures will need outpatient orthopedic follow-up Return precautions reviewed and patient expressed understanding Medical Records Medical records reviewed: Yes I reviewed the patient's medical records. HPI General Date/Time Provider Initiated Documentation: 01/28/23 16:18 . HPI Narrative: This 72-year-old male presents with report of laceration to his left fourth digit just prior to arrival. Patient injured himself on a band saw. Tetanus is reportedly up-to-date. He denies any new sensation or strength change. Related Data Home Medications Medication Instructions Recorded Confirmed albuterol sulfate 90 mcg/actuation 2 puff inhalation Q6H PRN 09/02/20 07/31/21 aerosol inhaler (Ventolin HFA) loratadine 10 mg tablet (Claritin) 10 mg PO DAILY 09/02/20 01/28/23 paroxetine HCl 20 mg tablet 20 mg PO DAILY 09/02/20 01/28/23 aspirin 81 mg chewable tablet 81 mg PO DAILY #0 tabs 01/08/21 01/28/23 atorvastatin 40 mg tablet (Lipitor) 40 mg PO QPM #30 tabs 01/08/21 01/28/23 cyclobenzaprine 10 mg tablet 10 mg PO TID PRN muscle spasm #20 01/08/21 01/28/23 tabs ibuprofen 200 mg capsule 200 mg PO PRN 07/21/21 01/28/23 pantoprazole 40 mg tablet,delayed 40 mg PO DAILY 10/18/22 01/28/23 release cephalexin 500 mg tablet 500 mg PO Q6H 7 days #28 tabs 01/28/23 prednisolone acetate 1 % eye 3 drp ophthalmic (eye) DAILY PRN 01/28/23 01/28/23 drops,suspension Previous Rx's Medication Instructions Recorded aspirin 81 mg chewable tablet 81 mg PO DAILY #0 tabs 01/08/21 atorvastatin 40 mg tablet (Lipitor) 40 mg PO QPM #30 tabs 01/08/21 cyclobenzaprine 10 mg tablet 10 mg PO TID PRN muscle spasm #20 01/08/21 tabs cephalexin 500 mg tablet 500 mg PO Q6H 7 days #28 tabs 01/28/23 Allergies Allergy/AdvReac Type Severity Reaction Status Date / Time No Known Allergies Allergy Verified 01/28/23 16:18 General Stated Complaint: Laceration SHADI: 4 PFSH All Active Problems (Updated 01/28/23 @ 17:34 by RONNY Kelly) Open fracture of phalanx of finger (Acute) Elevated PSA (Acute) Tubular adenoma of colon (Acute) Hyperplastic colon polyp (Acute) Ankylosing spondylitis of cervicothoracic region (Chronic) HTN (hypertension) (Chronic) TIA (transient ischemic attack) (Acute) Colorectal polyps (Acute ~11/07/18) Encounter for screening colonoscopy (Acute) Diverticulosis (Chronic) Depression (Chronic) 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 History of colonoscopy (~07/2021) S/P colonoscopy (~11/07/18) Social History Smoking/Tobacco Use Status: Former Tobacco Use Smoking risk assessment performed?: Yes Alcohol Intake: never Drug use: Never Substance use type: does not use Do you feel safe at home: Yes Do you feel safe in your relationship?: Yes Course Vital Signs Vital signs: Vital Signs Temperature 37.0 C 01/28/23 16:15 Pulse 62 01/28/23 16:15 Respiratory Rate 18 01/28/23 16:15 Blood Pressure 172/82 H 01/28/23 16:15 Pulse Oximetry 98 01/28/23 16:15 Temperature 37.0 C 01/28/23 16:15 Temperature Source Oral 01/28/23 16:15 Pulse 62 01/28/23 16:15 Respiratory Rate 18 01/28/23 16:15 Respiratory Effort Normal 01/28/23 16:21 Blood Pressure 172/82 H 01/28/23 16:15 Blood Pressure Position Sitting 01/28/23 16:15 Pulse Oximetry 98 01/28/23 16:15 Oxygen Delivery Method Room Air 01/28/23 16:15 Oxygen Flow Rate 0 01/28/23 16:15 Pain Level 2 01/28/23 16:15 Procedures Laceration Laceration 1: Site: hand Side (If applicable): left Size (cm): 2.2 Description: linear Depth: simple, single layer Local Anesthetic: Lidocaine 2% Amount of anesthesia used (mL): 3 Pre-repair: wound explored and deep structures intact Size (cm): 4-0 Number of sutures: 4 Technique: other (vertical mattress)
== END 2023-01-28 17:45 | disposition home or self-care (01) ==
PROVIDERS: Emergency Provider Physician Assistant; PCP Internal Medicine
DX: S62.605B Fracture of unspecified phalanx of left ring finger, initial encounter for open fracture (principal); W31.2XXA Contact with powered woodworking and forming machines, initial encounter
CPT/HCPCS: 29130; 99283; 73140

== ENCOUNTER → 2023-01-31 13:22 | Outpatient (BNVA) | payer MEDICARE, SELFPAY | PROVIDERS: PCP Internal Medicine; Referring Provider Internal Medicine | DX: S62.625B Displaced fracture of middle phalanx of left ring finger, initial encounter for open fracture (principal); W31.2XXA Contact with powered woodworking and forming machines, initial encounter | CPT/HCPCS: 99213 ==

== ENCOUNTER → 2023-02-04 14:52 | Outpatient (BNVA) | payer MEDICARE, SELFPAY | PROVIDERS: PCP Internal Medicine; Referring Provider Internal Medicine | DX: S62.625B Displaced fracture of middle phalanx of left ring finger, initial encounter for open fracture (principal); W31.2XXA Contact with powered woodworking and forming machines, initial encounter | CPT/HCPCS: 99213 ==

== ENCOUNTER → 2023-03-21 12:48 | Outpatient (BNVA) | payer MEDICARE, SELFPAY | PROVIDERS: PCP Internal Medicine; Referring Provider Internal Medicine; Visit Provider Nurse Practitioner Gerontology | DX: R97.20 Elevated prostate specific antigen [PSA] (principal); Z80.42 Family history of malignant neoplasm of prostate | CPT/HCPCS: 99214 ==

== ENCOUNTER 2023-04-02 08:45 | Outpatient (CLI) | payer MEDICARE, SELFPAY ==
--- NOTE | 2023-04-02 09:20 | PROST_PTH ---
PATIENT: Gibson Car LOC: [facility] U#:[id number] AGE/SX: 73/M ROOM: RE04/02/[address]: Juan M Gibson MD : [id number] BED: DIS: 04/02/2023 SPEC #: [id number] RECD: 04/02/23 12:34 STATUS: [facility] #: [id number] MICHELLE: 04/02/23 09:[address]: Juan M Gibson DEPT: Surgical Specimen RECD BY: Bren Villegas ENTERED: 04/02/23 12:35 SP TYPE: PROST OTHR DR: Faraz Kelley Tissues: 1 - PROSTATE NEEDLE BIOPSY 2 - PROSTATE NEEDLE BIOPSY 3 - PROSTATE NEEDLE BIOPSY 4 - PROSTATE NEEDLE BIOPSY 5 - PROSTATE NEEDLE BIOPSY 6 - PROSTATE NEEDLE BIOPSY 7 - PROSTATE NEEDLE BIOPSY 8 - PROSTATE NEEDLE BIOPSY 9 - PROSTATE NEEDLE BIOPSY 10 - PROSTATE NEEDLE BIOPSY 11 - PROSTATE NEEDLE BIOPSY 12 - PROSTATE NEEDLE BIOPSY Procedures: GROSS AND MICRO LEVEL 4 Comments: [id number]
== END 2023-04-02 08:46 | disposition home or self-care (01) ==
LOC: ORDER INT 08:52 → LBN 11:24
PROVIDERS: PCP Internal Medicine; Referring Provider Internal Medicine; Visit Provider Urology
DX: R97.20 Elevated prostate specific antigen [PSA] (principal)
CPT/HCPCS: 88305

== ENCOUNTER → 2023-04-02 08:45 | Outpatient (BNVA) | payer MEDICARE, SELFPAY | PROVIDERS: PCP Internal Medicine; Referring Provider Internal Medicine; Visit Provider Urology | DX: C61 Malignant neoplasm of prostate (principal) | CPT/HCPCS: 55700; 76872 ==

== ENCOUNTER → 2023-04-16 14:52 | Outpatient (BNVA) | payer MEDICARE, SELFPAY | PROVIDERS: PCP Internal Medicine; Referring Provider Internal Medicine; Visit Provider Urology | DX: C61 Malignant neoplasm of prostate (principal) | CPT/HCPCS: 99215 ==

== ENCOUNTER 2023-04-26 | Outpatient (CLI) | payer MEDICARE, SELFPAY ==
--- NOTE | 2023-04-26 07:15 | DI.NM_ITS ---
Exam(s) NM BONE SCAN WHOLE BODY GRP EXAM: NM BONE SCAN WHOLE BODY GRP CLINICAL HISTORY: baseline study for prostate cancer,C61. TECHNIQUE: Injected Dose: 25 mCi Tc-99m MDP Delayed Images: 2-3 hours. COMPARISON: No exams were available for comparison FINDINGS: Symmetric skeletal uptake. Bilateral renal excretion is identified. No focal area of intense suspici ous uptake is seen. IMPRESSION: 1. No evidence of metastatic disease. DATA REPOSITORY:
== END 2023-04-26 00:20 ==
LOC: DI 00:01
PROVIDERS: PCP Internal Medicine; Visit Provider Urology
DX: C61 Malignant neoplasm of prostate (principal)
CPT/HCPCS: 78306

== ENCOUNTER → 2023-05-02 07:51 | Outpatient (BNVA) | payer MEDICARE, SELFPAY | PROVIDERS: PCP Internal Medicine; Referring Provider Internal Medicine; Visit Provider Urology | DX: C61 Malignant neoplasm of prostate (principal) | CPT/HCPCS: 99442 ==

== ENCOUNTER 2023-07-18 03:21 | Outpatient (CLI) | payer MEDICARE, SELFPAY ==
--- NOTE | 2023-07-18 | DI.RAD_ITS ---
Exam(s) XR CHEST 2V PA LATERAL EXAM: XR CHEST 2V PA LATERAL CLINICAL HISTORY: PROSTATE CANCER C61 PRE OP EVAL TECHNIQUE: 2D digital imaging was performed of the chest. Two images were obtained. PA and lateral views were obtained. COMPARISON: CR,XR XR CHEST 2V PA LATERAL from 01/07/2021 FINDINGS: MEDIASTINUM: Normal. HEART: Normal. PULMONARY VASCULATURE: Normal. LUNGS: Clear. PLEURAL SPACE: No pleural effusion or pneumothorax. BONE:Within normal limits for the patient's age. OTHER FINDINGS:Normal. IMPRESSION: No acute pulmonary findings. DATA REPOSITORY: RADIATION DOSE DELIVERED:
[2023-07-18 10:22] LABS: Abs Immature Grans 0.01 10^3/uL (0.0-0.06); Absolute Basophil Count 0.03 10^3/uL (0.0-0.2); Absolute Eosinophil Count 0.09 10^3/uL (0.0-0.7); Absolute Lymphocyte Count 1.56 10^3/uL (1.2-3.4); Absolute Monocyte Count 0.55 10^3/uL (0.1-0.8); Absolute Neutrophil Count 3.86 10^3/uL (1.2-6.7); Basophils % 0.5; Eosinophils % 1.5; HCT 49.6 % (40.0-50.0); HGB 17.1 g/dL (13.5-17.5); Immature Grans % 0.2; Lymphocytes % 25.6; MCH 33.2 pg (27.0-33.0); MCHC 34.5 % (32.0-36.0); MCV 96 fL (80-95); Neutrophils % 63.2; Platelet Count 219 10^3/uL (130-400); RBC 5.15 10^6/uL (4.36-5.78); RDW-SD 43.4 fL
[2023-07-18 10:40] LABS: Bilirubin Negative (Negative); Blood Negative (Negative); Clarity Clear (Clear); Glucose Negative (Negative); Ketones Negative (Negative); Leukocyte Esterase Negative (Negative); Nitrite Negative (Negative); Urobilinogen 0.2 mg/dL (Up to 0.2); pH 5.5 (5-8)
[2023-07-18 11:31] LABS: BUN 17 mg/dL (7-18); CREATININE 1.2 mg/dL (0.70-1.30); Calcium 9.6 mg/dL (8.5-10.1); Chloride 102 mmol/L (98-107); Estimated GFR 63.85 (mL/min/1.73m2); Glucose 108 mg/dL (74-106); Potassium 4.4 mmol/L (3.5-5.1); Sodium 139 mmol/L (136-145)
== END 2023-07-18 03:22 ==
LOC: LBO 03:21
PROVIDERS: PCP Internal Medicine; Visit Provider Surgery
DX: C61 Malignant neoplasm of prostate (principal)
CPT/HCPCS: 36415; 80048; 71046; 81003; 85025

== ENCOUNTER 2023-07-18 10:32 | Outpatient (CLI) | payer MEDICARE, SELFPAY ==
--- NOTE | 2023-07-18 10:30 | RT.EKG_ITS ---
APPROVED REPORT Exam: Resting ECG Reason for Exam: MALIGNANT NEOPLASM OF PROSTATE Patient Location: O HR:62 bpm ECG Measurements Heart Rate 62 AXIS IA 205 P 10 QRSd 112 QRS -39 QT 409 T 60 QTc 416 Conclusion Sinus rhythm...normal P axis, V-rate 50- 99 Early R wave transition Otherwise normal ECG
== END 2023-07-18 10:33 | disposition home or self-care (01) ==
PROVIDERS: PCP Internal Medicine; Visit Provider Surgery
DX: C61 Malignant neoplasm of prostate (principal)
CPT/HCPCS: 36415; 80048; 71046; 81003; 85025; 93005; 93010

== ENCOUNTER → 2023-08-12 07:48 | Outpatient (BNVA) | payer MEDICARE, SELFPAY | PROVIDERS: PCP Internal Medicine; Referring Provider Internal Medicine; Visit Provider Nurse Practitioner Gerontology | DX: C61 Malignant neoplasm of prostate (principal); Z98.890 Other specified postprocedural states | CPT/HCPCS: 99213 ==

== ENCOUNTER → 2023-09-23 09:49 | Outpatient (BNVA) | payer MEDICARE, SELFPAY | PROVIDERS: PCP Internal Medicine; Visit Provider Nurse Practitioner Gerontology | DX: C61 Malignant neoplasm of prostate (principal); Z98.890 Other specified postprocedural states | CPT/HCPCS: 99213 ==

== ENCOUNTER 2023-12-23 04:04 | Outpatient (CLI) | payer MEDICARE, SELFPAY ==
[2023-12-24 17:29] LABS: PSA, Ultrasensitive <0.01 ng/mL (<= 6.5)
== END 2023-12-23 04:05 | disposition home or self-care (01) ==
PROVIDERS: PCP Internal Medicine; Visit Provider Nurse Practitioner Gerontology
DX: C61 Malignant neoplasm of prostate (principal)
CPT/HCPCS: 36415; 84153

== ENCOUNTER → 2024-01-07 10:27 | Outpatient (BNVA) | payer MEDICARE, SELFPAY | PROVIDERS: PCP Internal Medicine; Visit Provider Nurse Practitioner Gerontology | DX: C61 Malignant neoplasm of prostate (principal); N52.9 Male erectile dysfunction, unspecified | CPT/HCPCS: 99213 ==

== ENCOUNTER → 2024-03-20 01:08 | Outpatient (CLI) | payer MEDICARE, SELFPAY ==
--- NOTE | 2024-03-20 | DI.RAD_ITS ---
Exam(s) XR KNEE RT 3V AP,LAT,RADHA EXAM: XR KNEE RT 3V AP,LAT,RADHA CLINICAL HISTORY: OA RT KNEE, M17.9. TECHNIQUE: 2D digital imaging was performed. Three views. COMPARISON: No exams were available for comparison FINDINGS: BONES: No acute fracture is present. No bony destructive lesion is seen. JOINTS: The knee is normally aligned. No joint effusion is seen. Minimal medial femoral tibial join t space narrowing. Minimal periarticular spurring. SOFT TISSUE: Normal. IMPRESSION: Minimal degenerative changes. DATA REPOSITORY: RADIATION DOSE DELIVERED:
== END ==
PROVIDERS: PCP Family Medicine; Visit Provider Family Medicine
DX: M17.11 Unilateral primary osteoarthritis, right knee (principal)
CPT/HCPCS: 73562

== ENCOUNTER → 2024-06-15 10:00 | Outpatient (BNVA) | payer MEDICARE, SELFPAY | PROVIDERS: PCP Family Medicine; Referring Provider Family Medicine; Visit Provider Student in an Organized Health Care Education/Training Program | DX: M17.11 Unilateral primary osteoarthritis, right knee (principal) | CPT/HCPCS: 20610; J1010 ==

== ENCOUNTER 2024-06-30 05:03 | Outpatient (CLI) | payer MEDICARE, SELFPAY ==
[2024-07-02 13:12] LABS: PSA, Ultrasensitive <0.01 ng/mL (<= 6.5)
== END 2024-06-30 05:04 | disposition home or self-care (01) ==
LOC: LBO 05:03
PROVIDERS: PCP Family Medicine; Visit Provider Nurse Practitioner Gerontology
DX: C61 Malignant neoplasm of prostate (principal)
CPT/HCPCS: 36415; 84153

== ENCOUNTER → 2024-07-07 10:31 | Outpatient (BNVA) | payer MEDICARE, SELFPAY | PROVIDERS: PCP Family Medicine; Visit Provider Nurse Practitioner Gerontology | DX: N52.9 Male erectile dysfunction, unspecified (principal); C61 Malignant neoplasm of prostate | CPT/HCPCS: 99213 ==

== ENCOUNTER → 2024-08-17 10:32 | Outpatient (BNVA) | payer MEDICARE, SELFPAY | PROVIDERS: PCP Family Medicine; Referring Provider Family Medicine; Visit Provider Student in an Organized Health Care Education/Training Program | DX: M17.11 Unilateral primary osteoarthritis, right knee (principal); I10 Essential (primary) hypertension | CPT/HCPCS: 99213 ==

== ENCOUNTER 2024-10-07 12:52 | Outpatient (REF) | payer MEDICARE, SELFPAY ==
[2024-10-07 14:36] LABS: Abs Immature Grans 0.01 10^3/uL (0.0-0.06); Absolute Basophil Count 0.02 10^3/uL (0.0-0.2); Absolute Eosinophil Count 0.07 10^3/uL (0.0-0.7); Absolute Lymphocyte Count 1.22 10^3/uL (1.2-3.4); Absolute Monocyte Count 0.76 10^3/uL (0.1-0.8); Absolute Neutrophil Count 3.92 10^3/uL (1.2-6.7); Basophils % 0.3 %; Eosinophils % 1.2 %; HCT 50.3 % (40.0-50.0); HGB 17.2 g/dL (13.5-17.5); Immature Grans % 0.2 %; Lymphocytes % 20.3 %; MCH 34.2 pg (27.0-33.0); MCHC 34.2 % (32.0-36.0); MCV 100 fL (80-95); MPV 9.5 fL (8.0-11.0); Monocytes % 12.7 %; Neutrophils % 65.3 %; Platelet Count 205 10^3/uL (130-400); RBC 5.03 10^6/uL (4.36-5.78); RDW 12.1 % (11.8-14.1); RDW-SD 45.1 fL
[2024-10-07 14:47] LABS: ALT 32 U/L (16-63); AST 17 U/L (15-37); Albumin 3.8 g/dL (3.4-5.0); Alkaline Phosphatase 109 U/L (46-116); Anion Gap 4.8 mmol/L (3-11); BUN 17 mg/dL (7-18); Bilirubin, Total 0.54 mg/dL (0.2-1.0); CO2 32.2 mmol/L (21.0-32.0); CREATININE 1.1 mg/dL (0.70-1.30); Calcium 9.4 mg/dL (8.5-10.1); Chloride 107 mmol/L (98-107); Estimated GFR 70.44 (mL/min/1.73m2); Glucose 88 mg/dL (74-106); LDL CHOLESTEROL 76 mg/dL (<100); Potassium 4.7 mmol/L (3.5-5.1); Sodium 144 mmol/L (136-145); Total Protein 6.8 g/dL (6.4-8.2)
== END 2024-10-07 12:53 | disposition home or self-care (01) ==
LOC: NCHCN 12:52
PROVIDERS: PCP Family Medicine; Visit Provider Family Medicine
DX: E78.5 Hyperlipidemia, unspecified (principal)
CPT/HCPCS: 80053; 83721; 85025

== ENCOUNTER 2024-10-18 08:32 | Emergency (ER) | payer MEDICARE, SELFPAY ==
[2024-10-18 08:36] VITALS: BP 189/92; PULSE 65; RESP 15; TEMP 36.7; O2SAT 97
--- NOTE | 2024-10-18 08:45 | DI.RAD_ITS ---
Exam(s) XR HIP LT COMPLETE AP PELVIS EXAM: XR HIP LT COMPLETE AP PELVIS CLINICAL HISTORY: L hip pain. TECHNIQUE: 2D digital imaging was performed of the left hip. Two views were obtained. AP pelvis an d lateral left hip views were obtained. COMPARISON: No exams were available for comparison FINDINGS: BONES: No acute fracture is present. No bony destructive lesion is seen. JOINTS: No dislocation present. There is mild joint space narrowing in the left hip and moderate join t space narrowing in the right hip. There is prominence of the cortex bilaterally at the lateral fem oral neck and head junction suspicious for femoral acetabular impingement. SOFT TISSUE: Normal. IMPRESSION: 1. No acute fracture or dislocation. 2. Degenerative changes in the hips bilaterally. DATA REPOSITORY: RADIATION DOSE DELIVERED:
--- NOTE | 2024-10-18 08:45 | DI.RAD_ITS ---
Exam(s) XR LUMBAR SPINE AP, LAT EXAM: XR LUMBAR SPINE AP, LAT CLINICAL HISTORY: L SI joint pain. TECHNIQUE: 2D digital imaging was performed of the lumbar spine. Three images were obtained. AP, l ateral and L5-S1 spot views were obtained. COMPARISON: No exams were available for comparison FINDINGS: BONES: No fracture or destructive lesion. Endplate osteophytes are present at L2-L3 through L4-L5. No facet hypertrophy identified. The sacroiliac joints appear grossly unremarkable on this examination. DISKS: There is disc space narrowing at L5-S1. There is a vacuum disc at L5-S1. ALIGNMENT: Lumbar spinal alignment is within normal limits. No spondylolysis or spondylolisthesis. SOFT TISSUE: Atherosclerotic calcification is present. IMPRESSION: Mild degenerative changes in the lumbar spine. DATA REPOSITORY: RADIATION DOSE DELIVERED:
--- NOTE | 2024-10-18 09:12 | ED.GENADUL_ITS ---
Discharge Plan Disposition Patient Disposition: Home Condition: Stable Discharge Details Clinical Impression: Left lumbosacral radiculopathy Primary Care Provider: Isaac Taylor ED Provider: Romulo Houston Home Meds and New Rx's Prescriptions: Continued sildenafil [Viagra] 50 mg tablet 50 mg PO DAILY PRN (Reason: sexual activity) Qty: 10 0RF Rx Instructions: administer 30 minutes to 4 hours before activity paroxetine HCl 20 mg tablet 20 mg PO DAILY loratadine [Claritin] 10 mg tablet 10 mg PO DAILY pantoprazole 40 mg tablet,delayed release (DR/EC) 40 mg PO DAILY atorvastatin [Lipitor] 40 mg Tablet 40 mg PO QPM Qty: 30 0RF prednisolone acetate 1 % drops,suspension 3 drp ophthalmic (eye) DAILY PRN Patient Comments: INSTILL ONE DROP FOUR TIMES A DAY IN THE LEFT EYE FOR 4 DAYS, THEN ONE DROP THREE TIMES A DAY IN THE LEFT EYE FOR 3 DAYS, THEN 1 DROP TWO TI ibuprofen 200 mg capsule 200 mg PO PRN Discharge Instructions Instructions: Radiculopathy (DC) Additional Instructions: You were seen in the emergency department for your left lumbosacral rad iculopathy with arthritis present in both the spine and hip joint, this is likely the source of your gluteal pain, your calf pain is likely musculoskeletal strain to the anterior tibialis muscle. Please use therapeutic dosing of Tylenol (acetamenophen) & Advil (ibuprofen) in an alternating fashion as follows: Take 650mg of Tylenol every 6 hours without missing doses- that is 4 times per day. Snf in between the Tylenol dosings, take 400-600mg of Advil also on a 6 hour schedule, that is also 4 times per day. The daily maximum dosing of Tylenol is 3000mg, and the daily maximum dosing of Advil is 2400mg. This is safe to do for weeks. Please note that some common cold medications & prescription pain medications may contain acetamenophen and you need to read OTC drug labels and factor that in to maximum daily dosings. Apply [id number] Voltaren gel to areas of pain, seek a referral to the pain clinic for possible spinal injections of cortisone to help with pain. Please return to the emergency department for severe unilateral leg swelling, medial thigh pain, skin changes, inability to ambulate, complete numbness or paresthesia. Stand Alone Forms: Physical Therapy Referral Referrals: [facility] [Provider Group] [facility] [Provider Group] Isaac Taylor MD [Primary Care Provider] - Discharge Data Discharge Date/Time-TO BE ENTERED AT DEPARTURE: 10/18/24 09:53 HPI General Date/Time Provider Initiated Documentation: 10/18/24 08:42 . HPI Narrative: 74 year-old male presents to ED today by POV/ambulating with a chief complaint of L hip and gluteal pain, L anterior calf pain with onset over the past 3 weeks. Quality described as a deep ache in the gluteal muscles, pain in anterior tibialis area, no radiation to numbness/tingling, unilateral leg swelling, midline back pain, urinary retention, bowel incontinence. Severity is described as severe. Palliating factors include tried a cyclobenzaprine without relief. Provoking factors include movement of L leg. Patient not anticoagulated. Related Data Home Medications ?Medication ?Instructions ?Recorded ?Confirmed loratadine 10 mg tablet (Claritin) 10 mg PO DAILY 09/02/20 10/18/24 paroxetine HCl 20 mg tablet 20 mg PO DAILY 09/02/20 10/18/24 atorvastatin 40 mg tablet (Lipitor) 40 mg PO QPM #30 tabs 01/08/21 10/18/24 ibuprofen 200 mg capsule 200 mg PO PRN 07/21/21 10/18/24 pantoprazole 40 mg tablet,delayed 40 mg PO DAILY 10/18/22 10/18/24 release prednisolone acetate 1 % eye 3 drp ophthalmic (eye) DAILY PRN 01/28/23 10/18/24 drops,suspension sildenafil 50 mg tablet (Viagra) 50 mg PO DAILY PRN sexual activity 07/07/24 10/18/24 #10 tabs Previous Rx's ?Medication ?Instructions ?Recorded atorvastatin 40 mg tablet (Lipitor) 40 mg PO QPM #30 tabs 01/08/21 sildenafil 50 mg tablet (Viagra) 50 mg PO DAILY PRN sexual activity 07/07/24 #10 tabs Allergies Allergy/AdvReac Type Severity Reaction Status Date / Time No Known Allergies Allergy Verified 10/18/24 08:41 General Stated Complaint: Orthopedic SHADI: 4 Review of Systems All systems reviewed & are unremarkable except as noted in HPI and below Exam Narrative Exam Narrative: GENERAL APPEARANCE: Well-nourished, non-toxic, awake and alert, atraumatic, no acute distress. SKIN: Warm, pink, dry, intact, without rashes/lesions/ulcerations. HEAD: Normocephalic, atraumatic, normal hair distribution for gender/age. EYES: Normal conjunctiva, no exudates on lids/lashes. ENT: Nares patent, no circumoral cyanosis, no facial swelling NECK: Supple, trachea midline, painless cervical ROM. LUNGS/CHEST: Non-labored respirations, normal A/P diameter, symmetrical expansion, no chest wall deformity HEART (CV/PV): No peripheral edema, no JVD. ABDOMEN: Soft, non-distended, no guarding. MSK: Normal ROM, no swelling/deformity to bilateral UEs or LEs, moving all extremities without weakness, no cyanosis, spine midline without tenderness, normal curvature, tenderness to L gluteal musculature/sciatic distribution, tenderness and tension palpable at anterior tibialis muscle, neg Brittany's, no unilateral leg swelling or skin changes, no knee tenderness, no medial thigh tenderness NEURO: Mental Status AAOx4 - alert to person, place, time, events No facial droop, no forehead involvement. Motor: No focal weakness - strength 5/5 in bilateral UEs and LEs, proximal and distal, symmetric. Sensory: sensation intact to light touch globally. Gait normal: patient ambulated without ataxia into ED room. PSYCH: euthymic, cooperative, pleasant, appropriate speech Course Vital Signs Vital signs: Vital Signs Temperature 36.7 C 10/18/24 08:36 Pulse 65 10/18/24 08:36 Respiratory Rate 15 10/18/24 08:36 Blood Pressure 189/92 H 10/18/24 08:36 Pulse Oximetry 97 10/18/24 08:36 Temperature 36.7 C 10/18/24 08:36 Temperature Source Temporal Artery Scan 10/18/24 08:36 Pulse 65 10/18/24 08:36 Respiratory Rate 15 10/18/24 08:36 Blood Pressure 189/92 H 10/18/24 08:36 Blood Pressure Position Supine 10/18/24 08:36 Pulse Oximetry 97 10/18/24 08:36 Oxygen Delivery Method Room Air 10/18/24 08:36 Oxygen Flow Rate 0 10/18/24 08:36 Pain Level 8 10/18/24 08:40 Medical Decision Making This dictation utilizes [id number] dictation software and may contain unedited grammatical errors. 74 year-old male presents to ED today by POV/ambulating with a chief complaint of L hip and gluteal pain, L anterior calf pain with onset over the past 3 weeks. Quality described as a deep ache in the gluteal muscles, pain in anterior tibialis area, no radiation to numbness/tingling, unilateral leg swelling, midline back pain, urinary retention, bowel incontinence. Severity is described as severe. Palliating factors include tried a cyclobenzaprine without relief. Provoking factors include movement of L leg. Patients' medical history: Ankylosing spondylitis, hyperlipidemia, fibromyalgia, endorses history of sciatica. Family and social history: Noncontributory. Pertinent exam findings / vital signs include tenderness to L gluteal musculature/sciatic distribution, tenderness and tension palpable at anterior tibialis muscle, neg Brittany's, no unilateral leg swelling or skin changes, no knee tenderness, no medial thigh tenderness. Differential / pathologies of concern include sciatica, sacroiliitis, muscle strain, flare of ankylosing spondylitis. Diagnostic studies of: -XR L Hip & Lumbar Spine - degenerative changes. Interventions of: -Tylenol, Toradol. ED Course/Assessment/Plan: 74-year-old male presents with left gluteal pain and left pain at the anterior tibialis muscle, no skin changes or unilateral leg swelling, no signs of DVT on exam, x-ray shows degenerative changes, patient has comorbidity of ankylosing spondylitis perhaps this is flaring up he also has fibromyalgia, I do recommend he go to physical therapy for lumbosacral radicular symptoms, recommend warm compresses, regular doses of APAP/NSAIDs and muscle relaxer, provided to go pack him for trazodone to help him sleep over the next few days while he arranges for physical therapy, strict return criteria for any numbness to genitals, urinary retention, bowel incontinence, paresthesias, unilateral leg swelling with skin changes. Findings not consistent with DVT, fracture, neurovascular compromise. Disposition of Left Lumbosacral Radiculopathy. Patient verbalized understanding of the plan and return to ED criteria and engaged in shared decision making. Medical Records Medical records reviewed: Yes I reviewed the patient's medical records. Imaging Data Radiologic Study: Attestation: I personally reviewed and interpreted this imaging study as follows: Imaging: X-Ray Radiologist's impression: Exam: XR Lumbosacral Spine Exam date and time: 10/18/2024 9:00 AM Age: 74 years old Clinical indication: Other: Si joint pain TECHNIQUE: Imaging protocol: Radiologic exam of the lumbosacral spine. Views: 2 or 3 views. COMPARISON: CR XR HIP LT COMPLETE AP PELVIS 10/18/2024 8:57 AM FINDINGS: Bones/joints: There is no evidence of acute fracture.There is no evidence of malalignment or dislocation. Intervertebral disc spaces are narrowed at L5/S1 consistent with degenerative disc disease. Anterior osteophyte formation L2 through L5 Soft tissues: Unremarkable. IMPRESSION: 1. There is no evidence of acute fracture.There is no evidence of malalignment or dislocation. 2. Intervertebral disc spaces are narrowed at L5/S1 consistent with degenerative disc disease. Dictated and Authenticated by: Bernice Mccloud MD. Radiologic Study #2: Attestation: I personally reviewed and interpreted this imaging study as follows: Imaging: X-Ray Radiologist's impression: Exam: XR Left Hip Exam date and time: 10/18/2024 8:57 AM Age: 74 years old Clinical indication: Hip pain; Left hip TECHNIQUE: Imaging protocol: Radiologic exam of the left hip. Views: 2 or 3 views hip with pelvis when performed. COMPARISON: [facility] 04/26/2023 2:16 PM FINDINGS: Bones/joints: Degenerative changes in both hips. There is no evidence of acute fracture.There is no evidence of malalignment or dislocation. Soft tissues: Unremarkable. IMPRESSION: 1. Degenerative changes in both hips. 2. There is no evidence of acute fracture.There is no evidence of malalignment or dislocation. Dictated and Authenticated by: Bernice Mccloud MD. Quality:SDOH Health Related Social Needs: No Data to Display PFSH All Active Problems (Updated 10/18/24 @ 09:39 by RONNY Riggins) Left lumbosacral radiculopathy (Acute) Degenerative joint disease of right knee (Chronic) 80 mg Depo-medrol: 06/15/24 Prostate cancer (Chronic) Elevated PSA (Acute) Tubular adenoma of colon (Acute) Hyperplastic colon polyp (Acute) Ankylosing spondylitis of cervicothoracic region (Chronic) HTN (hypertension) (Chronic) TIA (transient ischemic attack) (Acute) Colorectal polyps (Acute ~11/07/18) Encounter for screening colonoscopy (Acute) Diverticulosis (Chronic) Depression (Chronic) 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 History of colonoscopy (~07/2021) S/P colonoscopy (~11/07/18) Social History Smoking/Tobacco Use Status: Former Tobacco Use Smoking risk assessment performed?: Yes Alcohol Intake: never Drug use: Never Substance use type: does not use Do you feel safe at home: Yes Do you feel safe in your relationship?: Yes
--- NOTE | 2024-10-18 09:15 | DI.VRAD_ITS ---
PROCEDURE INFORMATION: Exam: XR Lumbosacral Spine Exam date and time: 10/18/2024 9:00 AM Age: 74 years old Clinical indication: Other: Si joint pain TECHNIQUE: Imaging protocol: Radiologic exam of the lumbosacral spine. Views: 2 or 3 views. COMPARISON: CR XR HIP LT COMPLETE AP PELVIS 10/18/2024 8:57 AM FINDINGS: Bones/joints: There is no evidence of acute fracture.There is no evidence of malalignment or dislocation. Intervertebral disc spaces are narrowed at L5/S1 consistent with degenerative disc disease. Anterior osteophyte formation L2 through L5 Soft tissues: Unremarkable. IMPRESSION: 1. There is no evidence of acute fracture.There is no evidence of malalignment or dislocation. 2. Intervertebral disc spaces are narrowed at L5/S1 consistent with degenerative disc disease. Dictated and Authenticated by: Bernice Mccloud MD. Ordering:MITZI Sebastian MD
--- NOTE | 2024-10-18 09:16 | DI.VRAD_ITS ---
PROCEDURE INFORMATION: Exam: XR Left Hip Exam date and time: 10/18/2024 8:57 AM Age: 74 years old Clinical indication: Hip pain; Left hip TECHNIQUE: Imaging protocol: Radiologic exam of the left hip. Views: 2 or 3 views hip with pelvis when performed. COMPARISON: [facility] 04/26/2023 2:16 PM FINDINGS: Bones/joints: Degenerative changes in both hips. There is no evidence of acute fracture.There is no evidence of malalignment or dislocation. Soft tissues: Unremarkable. IMPRESSION: 1. Degenerative changes in both hips. 2. There is no evidence of acute fracture.There is no evidence of malalignment or dislocation. Dictated and Authenticated by: Bernice Mccloud MD. Ordering:MITZI Sebastian MD
[2024-10-18] MEDS: Ketorolac 30 MG/ML VIAL IM (09:40)
[2024-10-18 09:48] VITALS: BP 144/88; PULSE 63; RESP 18; O2SAT 100
[2024-10-18] MEDS: traZODone 50 MG TAB 200 MG PO (10:03)
== END 2024-10-18 09:53 | disposition home or self-care (01) ==
PROVIDERS: Emergency Provider Physician Assistant; PCP Family Medicine
DX: M54.17 Radiculopathy, lumbosacral region (principal); I10 Essential (primary) hypertension; E78.5 Hyperlipidemia, unspecified; Z86.73 Personal history of transient ischemic attack (TIA), and cerebral infarction without residual deficits; Z87.891 Personal history of nicotine dependence
CPT/HCPCS: 96372; 99284; 72100; 73502; J1885

== ENCOUNTER → 2024-11-27 10:33 | Outpatient (BNVA) | payer MEDICARE, SELFPAY | PROVIDERS: PCP Family Medicine; Referring Provider Family Medicine | DX: M17.11 Unilateral primary osteoarthritis, right knee (principal) | CPT/HCPCS: 20610; J1010 ==

== ENCOUNTER 2024-12-30 03:35 | Outpatient (CLI) | payer MEDICARE, SELFPAY ==
[2025-01-01 11:36] LABS: PSA, Ultrasensitive <0.01 ng/mL (<= 6.5)
== END 2024-12-30 03:36 | disposition home or self-care (01) ==
LOC: LBO 03:35
PROVIDERS: PCP Family Medicine; Visit Provider Nurse Practitioner Gerontology
DX: C61 Malignant neoplasm of prostate (principal)
CPT/HCPCS: 36415; 84153

== ENCOUNTER → 2025-01-06 10:09 | Outpatient (BNVA) | payer MEDICARE, SELFPAY | PROVIDERS: PCP Family Medicine; Visit Provider Nurse Practitioner Gerontology | DX: N52.9 Male erectile dysfunction, unspecified (principal); R97.20 Elevated prostate specific antigen [PSA]; C61 Malignant neoplasm of prostate | CPT/HCPCS: 99213 ==

== ENCOUNTER 2025-07-07 04:23 | Outpatient (CLI) | payer MEDICARE, SELFPAY | END 2025-07-07 04:24 | disposition home or self-care (01) | LOC: LBO 04:24 | PROVIDERS: PCP Family Medicine; Visit Provider Nurse Practitioner Gerontology | DX: C61 Malignant neoplasm of prostate (principal); R97.20 Elevated prostate specific antigen [PSA] | CPT/HCPCS: 36415; 84153 ==

== ENCOUNTER → 2025-07-14 10:19 | Outpatient (BNVA) | payer MEDICARE, SELFPAY | PROVIDERS: PCP Family Medicine; Referring Provider Family Medicine; Visit Provider Nurse Practitioner Gerontology | DX: C61 Malignant neoplasm of prostate (principal); N52.9 Male erectile dysfunction, unspecified; R97.20 Elevated prostate specific antigen [PSA] | CPT/HCPCS: 99213 ==

== ENCOUNTER 2025-10-12 09:09 | Outpatient (REF) | payer MEDICARE, SELFPAY ==
[2025-10-12 16:35] LABS: ALT 48 U/L (10-49); AST 26 U/L (<34); Albumin 4.2 g/dL (3.2-5.0); Alkaline Phosphatase 104 U/L (46-116); Anion Gap 10.7 mmol/L (3-11); BUN 13 mg/dL (9-23); Bilirubin, Total 0.6 mg/dL (0.2-1.2); CO2 29.3 mmol/L (20.0-31.0); Calcium 9.5 mg/dL (8.3-10.6); Chloride 105 mmol/L (98-107); Cholesterol 148 mg/dL (<200); Glucose 89 mg/dL (74-106); HDL Cholesterol 35 mg/dL (>40); Potassium 4.5 mmol/L (3.5-5.1); Sodium 145 mmol/L (136-145); Total Protein 6.9 g/dL (5.7-8.2)
== END 2025-10-12 09:10 | disposition home or self-care (01) ==
LOC: NCHCN 09:09
PROVIDERS: PCP Family Medicine; Visit Provider Family Medicine
DX: E78.5 Hyperlipidemia, unspecified (principal)
CPT/HCPCS: 80053; 80061